=== PATIENT | female | born 1960 | race Caucasian/White ===

== ENCOUNTER → 2018-09-15 16:40 | Outpatient (CLI) | payer BC, SELFPAY ==
--- NOTE | 2018-09-15 16:45 | DI.MRI.S_ITS ---
PROCEDURE: MR KNEE LT WO CON INDICATIONS: LEFT KNEE ARTHRITIS, pain TECHNIQUE: [employer] protocol was performed. Noncontrast sagittal PD fast spin echo and T2 fast spin echo with fat saturation, sagittal 3-D FLASH with fat saturation; coronal T1 spin echo and PD fast spin echo with fat saturation, and axial PD fast spin echo with fat saturation through the knee. COMPARISON: None. FINDINGS: Image quality: Excellent. Menisci: Circumferential poorly defined macerated tear of the lateral meniscus involving anterior horn, body and posterior horn. There is also complete extrusion of the lateral meniscal body. Medial meniscal tear also noted with involvement of the body and posterior horn. There is also complete extrusion of the medial meniscal body. Cruciate ligaments: Anterior cruciate ligament not seen and likely ruptured although the age of this finding is technically indeterminate. The posterior cruciate ligament demonstrates thickened appearance although intact fibers are seen suggestive of partial rupture/chronic sprain. Medial structures: The medial collateral ligament appears thickened proximally with intrasubstance signal change in keeping with age indeterminate low-grade sprain. The posterior oblique ligament, semimembranosus tendon insertions, oblique popliteal ligament, and meniscocapsular junction appear intact. Visualized portions of the pes anserinus tendons appear normal. No abnormal bursal fluid. Lateral structures: The lateral collateral ligament, long and short heads of the biceps femoris tendon appear intact. The popliteus tendon appears normal; the popliteofibular ligament appears intact. The posterosuperior and anteroinferior popliteomeniscal fascicles appear intact. The arcuate and fabellofibular ligaments appear intact, on either side of the lateral inferior geniculate artery. Iliotibial band appears normal. Anterior structures: The quadriceps and patellar tendons appear intact. There is mild distal patellar tendinopathy. Patellar alignment is normal. No femoral trochlear dysplasia or ventral trochlear prominence. No edema in the infrapatellar fat pad. Bones and cartilage: No bone marrow contusions or fractures. Within the medial compartment there is full-thickness femoral and tibial articular cartilage loss with subchondral marrow signal changes and edema. Within the lateral compartment there is also full-thickness loss of the femoral and tibial articular cartilage Within the patellofemoral compartment, mild partial thickness loss of the femoral trochlear and patellar cartilage diffusely. Joint space: Large joint effusion is present. No definite intra-articular loose bodies. There is a moderate to large Torres's cyst which measures approximately 4 cm in the cephalocaudad dimension. IMPRESSION: Circumferential lateral meniscal tear with complete extrusion of the body. Complex medial meniscal tear involving the posterior horn and body also with complete extrusion of the body. 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 Age-indeterminate PCL sprain, with some intact visualized fibers. Proximal low-grade sprain of the MCL. Advanced joint degeneration with full-thickness articular cartilage denudation within the medial lateral compartments. Large joint effusion. Torres's cyst. Mild distal patellar tendinopathy. Dictated by: Rashaun Glez M.D. on 09/16/2018 at 8:16 Approved by: Rashaun Glez M.D. on 09/16/2018 at 9:08
== END ==
PROVIDERS: Family Provider Family Medicine; PCP Family Medicine; Visit Provider Orthopaedic Surgery
DX: S83.272A Complex tear of lateral meniscus, current injury, left knee, initial encounter (principal); S83.232A Complex tear of medial meniscus, current injury, left knee, initial encounter; S83.412A Sprain of medial collateral ligament of left knee, initial encounter; S83.522A Sprain of posterior cruciate ligament of left knee, initial encounter; M17.12 Unilateral primary osteoarthritis, left knee; M25.562 Pain in left knee; M25.462 Effusion, left knee; M71.22 Synovial cyst of popliteal space [Baker], left knee
CPT/HCPCS: 73721

== ENCOUNTER 2018-10-26 09:52 | Inpatient (IN) | payer OTHER, SELFPAY ==
[2018-10-11 10:53] VITALS: BMI 42.7
[2018-10-26] VITALS (13 sets, daily range): BP systolic 103–138; BP diastolic 43–74; PULSE 42–51; RESP 8–18; TEMP 36.3–36.7; O2SAT 96–100; BMI 42.3
--- NOTE | 2018-10-26 06:00 | DI.RAD.S_ITS ---
PROCEDURE: XR KNEE LT 1TO2V INDICATIONS: total left knee TECHNIQUE: 2 view(s) of the knee acquired. COMPARISON: None. FINDINGS: Bones: Patient is status post knee joint arthroplasty. Hardware components are in expected positions. Visualized bony structures are intact. Soft tissues: Overlying postoperative changes are noted. IMPRESSION: Post left total knee arthroplasty changes with anatomic left knee alignment. Dictated by: Chase Winston M.D. on 10/26/2018 at 15:43 Approved by: Chase Winston M.D. on 10/26/2018 at 15:43
[2018-10-26] MEDS: ACETAMINOPHEN 325 MG TABLET 975 MG PO ×2 (11:04→21:44)
[2018-10-26] MEDS: CELECOXIB 200 MG CAPSULE PO (11:04)
[2018-10-26] MEDS: LACTATED RINGERS 1,000 ML 42 ML IV ×2 (11:20→15:04)
--- NOTE | 2018-10-26 12:37 | P.OP_ITS ---
Operative Date/Time/Diagnoses Date of procedure: 10/26/18 Time of procedure: 15:12 Pre-op diagnosis: Left knee osteoarthritis Post-op diagnosis: same Procedure & Clinicians Procedure: Left total knee arthroplasty Same procedure as scheduled: Yes Indications: The patient presents today for total knee arthroplasty after failure of conservative treatment. The nature of the procedure including the risks and benefits, alternatives, postoperative course and expected outcome were discussed and all questions answered. Consent was obtained. Operative site confirmed and marked. Surgeon: Don Walker Crate Builder: Joseph Gregory Anesthesia Type: General and Local Operative Notes Findings: Severe tricompartmental osteoarthritis with valgus alignment. Closure Type: primary Specimen(s): none sent Prosthetic devices, grafts, tissues, transplants, or devices: [facility] BCS: 4 femoral component, 5 tibial component, 12 mm BCS polyethylene tray and 53 x 9 mm round patella Applied: implant(s) Estimated Blood Loss (mL): 75 Blood products transfused: none Tourniquet time (min): 24 Procedure in detail: The patient was taken to the operative suite and placed under general anesthesia. The patient was given prophylactic antibiotics prior to surgery. The patient was also given tranexamic acid, 1 g, just prior to surgery for postoperative hemostasis. The lateral knee was prepped and the joint injected with 20 mL of 1% Lidocaine with epinephrine. The knee was then prepped and draped in usual sterile fashion. The leg was exsanguinated with an Esmarch dressing and the tourniquet raised to 250 torr. A 15 cm anterior incision was made. Next a medial trivector arthrotomy was made. The extensor mechanism was marked to ensure accurate repair. Initial exposing dissection was carried out medially and laterally. The knee was then extended and the patellar thickness was measured and a cut made removing approximately 9 mm of bone with a goal of restoring normal patellar thickness. The patella was then sized and drilled. Some excess lateral bone was excised and the patellofemoral ligament released. The tourniquet was then released. The knee was then flexed and the [employer] femoral guide was placed. The anterior pins were placed and the distal rotation holes drilled. The distal cutting guide was placed and the templated distal femoral cut was made. The templating cutting block was then placed the anterior cut was too proud. Block was switched from a 5 to a 4 giving 3 more mm of anterior cut and leaving the posterior cut unchanged. The anterior, posterior and chamfer cuts made. The [employer] tibial guide was placed and the alignment checked along the axis of the proximal tibial with a aarti. The proximal tibial cut was then made with an oscillating saw. All meniscus and bony debris was then removed. Flexion extension gaps were checked. No specific balancing was required other than routine exposure and removal of osteophytes. The soft tissues were then injected with a combination of 20 mL of half percent Marcaine with epinephrine and 20 mL of Exparel. The trial components were then placed. The knee required a 12 mm spacer. This was not unexpected as both the distal femoral cut and the posterior femoral cuts were quite ample. The knee went into full extension and flexion beyond 120?. There was excellent medial- lateral balance throughout motion. Patellar tracking showed some initial subluxation or tightness about 45? of flexion. This did correct with deeper flexion. A lateral release was performed which fully corrected the alignment. The trial components were removed and size is confirmed for the final implants. The knee was then exsanguinated with an Esmarch dressing and the tourniquet reapplied for cementing. The knee was cleansed with Pulsavac irrigation and dried. The final components were cemented in with high viscosity vacuum mixed bone cement with antibiotics. The knee was held in extension and the patellar clamp until the cement had adequately cured. The knee was then irrigated with dilute Betadine solution. The extensor mechanism was closed with 5 interrupted #1 Vicryl sutures in 90 degrees of flexion. The joint was then injected with a combination of 1 g of tranexamic acid and 20 mL of quarter percent Marcaine with epinephrine. The subcutaneous tissue was closed with 2-0 Vicryl. The skin was closed with ace and surgical adhesive. An Aquacel dressing and Renzo wrap were then applied. Complications: none Condition: stable Disposition: PACU Plan for aftercare: [facility] protocol for total knee arthroplasty.
--- NOTE | 2018-10-26 12:37 | PM.PREOP ---
Pre-operative Note Interval Note History & Physical reviewed/Exam performed by Physician: Yes Changes to H&P: No
[2018-10-26] MEDS: CEFAZOLIN 2 GM/100 ML FROZ.PIGGY IV (13:30)
[2018-10-26] MEDS: LIDOCAINE 1% W/EPI INJ 20 ML INJ (13:35)
[2018-10-26] MEDS: TRANEXAMIC ACID 1,000 MG VIAL 1000 MG INJ (13:42)
--- NOTE | 2018-10-26 13:53 | SUR.OPER ---
Supine on padded OR bed. Pillow under head, arms secured on padded armboards <90 degree abduction. Safety belt across torso. Non-operative leg secured with tape over blanket over lower leg. Operative leg secured in DeMayo/Leonardo positioner. Foam padded brace at thigh of operative leg.
[2018-10-26] MEDS: BUPIVACAINE 0.5% W/ EPI (PF) 10 ML, TRANEXAMIC ACID 1,000 MG, SODIUM CHLORIDE 0.9% 20 ML INJ (14:04)
[2018-10-26] MEDS: BUPIVACAINE 0.5% W/ EPI (PF) 20 ML, BUPIVACAINE LIPOSOME 266 MG, SODIUM CHLORIDE 0.9% 8... INJ (14:05)
[2018-10-26] MEDS: POVIDONE-IODINE 15 ML, SODIUM CHLORIDE 0.9% 250 ML TOP (14:07)
[2018-10-26] MEDS: LACTATED RINGERS 1,000 ML 125 ML IV (17:07)
--- NOTE | 2018-10-26 18:33 | PC.NURSE ---
Addendum entered by Esme Bhakta R.N. 10/26/18 22:02: 2039- pt nausea with 50 clear orange emesis, zofran 4mg IVP given, effective. Original Note: Addendum entered by Esme Bhakta R.N. 10/26/18 22:01: 2019- pt up to BSC 1PA FWW to void 200mL clear yellow urine. Original Note: 1600- Pt arrived to room 214 from PACU via bed. A/O x3, mildly drowsy, able to provide information for admission. Right knee with aquacell/zev wrap, CDI, double ice bags, pillow under calf, calf SCD's on. Starting to wiggle toes, unable to ankle pump, Pt remains with numbness, denies pain. 98-100% RA, LS clear, denies SOB. Hx HTN, and A-fib, BP currently stable with bradycardia mid 40's, baseline is 50-55 since started taking Verapamil and Sotalol year and half ago, for A-fib and HTN. Left ventral aspect wrist LR @ 125. Pt is on alvarez path, unable to get OOB with PT earlier due to numbness. Pt tolerating jello, ice chips, water, and crackers, declined dinner tray. Bed alarm on.
[2018-10-26] MEDS: CEFAZOLIN VIAL 3 GM in SODIUM CHLORIDE 0.9% 100 ML 200 ML IV (21:43)
[2018-10-26] MEDS: ONDANSETRON 4 MG/2 ML INJ IV (21:44)
[2018-10-26] MEDS: ASPIRIN EC 81 MG TABLET PO (21:45)
[2018-10-26] MEDS: VERAPAMIL SR 240 MG TABLET PO (21:45)
[2018-10-26] MEDS: SOTALOL 80 MG TABLET 160 MG PO (21:45)
[2018-10-27] MEDS: LACTATED RINGERS 1,000 ML 125 ML IV (01:36)
[2018-10-27] MEDS: ONDANSETRON 4 MG/2 ML INJ IV (01:37)
[2018-10-27 04:15] VITALS: BP 105/53; PULSE 50; RESP 12; TEMP 36.3; O2SAT 100
[2018-10-27] MEDS: LEVOTHYROXINE 75 MCG TABLET PO (06:02)
[2018-10-27] MEDS: LEVOTHYROXINE 100 MCG TABLET PO (06:02)
[2018-10-27] MEDS: CEFAZOLIN VIAL 3 GM in SODIUM CHLORIDE 0.9% 100 ML 200 ML IV (06:02)
[2018-10-27 07:50] VITALS: BP 103/46; PULSE 47; RESP 14; TEMP 36.7; O2SAT 100
--- NOTE | 2018-10-27 08:19 | P.DS_ITS ---
History of Present Illness Date Patient Seen: 10/27/18 Time Patient Seen: 08:15 Chief complaint: Total Knee Arthroplasty [id number] Narrative: Hospital day 2, postop day 1 following left total knee arthroplasty by Dr. Walker. Patient remained stable postoperatively. States she did not get much rest last night. Has had some nausea and vomiting off and on but that seems to be resolved this morning. She is anticipating going home today if stable. She has not had physical therapy yet. She is scheduled to go to [facility] in [place]. Her BP and pulse were low this morning and may hold her cardiac meds. Discharge Providers Date of admission: 10/26/18 09:52 Discharge Date: 10/27/18 Primary care physician: Adeola Camacho PA-C Consults: 10/26/18 15:49 Consult to Discharge Planning Routine Comment: Consult to Physical Therapy Evaluate & Treat Comment: Physician Instructions: postop TKA protocol Consult to Respiratory Therapy Evaluate & Treat Comment: Physician Instructions: Evaluate and treat Discharge provider: Nabor Lopez PA-C Summary Discharge Diagnosis: Status post left total knee arthroplasty. Hospital Course: Patient brought to hospital on 10/26/2018 for above noted surgery. She remained stable postoperatively. Gradually improved with PT. Patient ready for discharge home on postop day 1. Status at Discharge Cognitive/behavioral status at discharge: Alert oriented no acute distress. Functional status at discharge: uses cane/walker Overall status at discharge: patient is progressing back to baseline Time Spent with Patient Less than 30 minutes Exam Vital Signs (past 8 hours): - 10/27/18 04:15 Temperature 97.4 F L Pulse Rate 50 L Respiratory Rate 12 Blood Pressure 105/53 L Pulse Oximetry 100 Oxygen Delivery Method Room Air Oxygen Flow Rate 0 Narrative Exam Narrative: Legs. Aquacel dressing to left knee is dry without drainage or inflammation. No calf pain or swelling. Pulses symmetrical. Discharge Plan Discharge Plan Patient Disposition: Home Discharge comment: Discharged home today after cleared by PT. If she is not cleared by PT she will stay tonight and possible discharge tomorrow. She is scheduled to go to [facility] at [place]. She is a [facility] patient and has postop pain medications at home. Discharge Med Rec/Prescriptions Prescriptions: New aspirin 81 mg Tablet,Delayed Release (Dr/Ec) 81 mg PO BID Qty: 60 RF: 0 Continued levothyroxine [Synthroid] 50 MCG tablet 175 mcg PO QDAY Qty: 0 RF: 0 metformin [Glucophage] 500 MG tablet 500 mg PO QAM Qty: 0 RF: 0 multivitamin Tablet 1 tab PO DAILY RF: 0 sotalol 160 mg Tablet 160 mg PO Q12H RF: 0 acetaminophen [Tylenol Extra Strength] 500 mg Tablet 1,000 mg PO Q6H PRN (Reason: Pain) RF: 0 losartan 100 mg Tablet 100 mg PO DAILY RF: 0 iron 18 mg Tablet 18 mg PO DAILY RF: 0 meloxicam 15 mg Tablet 15 mg PO DAILY RF: 0 verapamil 240 mg Tablet Extended Release 240 mg PO Q12H RF: 0 Discontinued aspirin 81 mg Tablet,Delayed Release (Dr/Ec) 81 mg PO DAILY RF: 0 Follow up/Referrals: Adeola Camacho PA-C [Primary Care Provider] - Provider Discharge Instructions Diet: Diet as Tolerated Activity: Ambulate as tolerated. Use walker as needed. Cold/Heat Therapy: Cold pack to knee as needed. Skin/Wound/Dressing Care Report to your healthcare provider any signs of infection, such as:: chills, fever, night sweats, increased pain, unusual drainage and unusual redness Dressing: Keep Aquacel dressing in place until postop visit. Discharge Data Primary Care Provider: Adeola Camacho Attending Provider: Don Walker Admit Date/Time: 10/26/18 09:52 Quality VTE Deep Vein Thrombosis/Pulmonary Embolism Present on Admission: No
[2018-10-27 08:42] LABS: Hematocrit 35.6 % (36-46); Hemoglobin 11.8 g/dL (12.0-16.0)
[2018-10-27] MEDS: OXYCODONE IR 5 MG TABLET PO (08:53)
[2018-10-27] MEDS: METFORMIN HCL 500 MG TABLET PO (08:53)
[2018-10-27] MEDS: ACETAMINOPHEN 325 MG TABLET 975 MG PO (08:54)
[2018-10-27] MEDS: ASPIRIN EC 81 MG TABLET PO (08:55)
--- NOTE | 2018-10-27 09:35 | PT.IIE ---
Current Diagnoses Unilateral primary osteoarthritis, right knee (10/26/18) Unilateral primary osteoarthritis, left knee (10/26/18) Surgery Performed Operation Date: 10/26/18 12:15 Actual Procedures p Total Knee Arthroplasty(Left) - Don Walker MD Surgical History (Last Updated 10/11/18 @ 11:30 by Luli Frankel, KYLE) History of bilateral carpal tunnel release (Acute) History of colonoscopy with polypectomy (Acute ~2012) History of esophagogastroduodenoscopy (EGD) (Acute ~2012) History of gastric surgery (Acute ~09/2017) Hx of arthroscopy of left knee (Acute ~1986) Medical History (Last Updated 10/26/18 @ 10:19 by Jenny Agosto RN) Asthma (Acute) Back pain (Acute) Bilateral shoulder pain (Acute) Cataracts, bilateral (Acute) Chronic diastolic heart failure (Acute) DVT (deep venous thrombosis) (Acute) Depression (Acute) Diabetes (Acute) Edema (Acute) GI (gastrointestinal bleed) (Acute ~2012) HTN (hypertension) (Acute) Hyperlipidemia (Acute) Hypothyroid (Acute) Kidney stones (Acute) Numbness and tingling (Acute) JABARI treated with BiPAP (Acute) Osteoarthritis (Acute) Paroxysmal A-fib (Acute) Pneumonia (Acute) RAD (reactive airway disease) (Acute) RLS (restless legs syndrome) (Acute) Schatzki's ring (Acute ~2012) Sciatica (Acute) Sinus infection (Acute) Staghorn kidney stones (Acute) Umbilical hernia (Acute) Physical Therapy Inpatient Evaluation/Re-Eval M1 PT/OT-IP Prior Functional Status Start: 10/26/18 17:10 Freq: NEEDED Status: Active Protocol: Document 10/27/18 09:35 AB (Rec: 10/27/18 12:47 AB [id number]) Medical Review Prior Functional Status Medical History Reviewed Yes Communication able to make needs known Mobility and Gait pt stated that she is modified independent with all mobilities and ambulation without AD indoors but uses a SPC for outdoor mobility Social History Household Members spouse Living Arrangements House Number of Floors (Floors) One Floor Number of Stairs To Enter/Railing? 4 steps to enter with bilateral wide rails and can only use one rail at a thime. Home Environment High Toilet Tub/Shower Home Equipment Front Wheel Walker Straight Cane Crutches Hand Held Shower Grab Bars Near Toilet Grab Bars In Shower Employment Status Retired Additional Social History Comment pt has a adjustable bed M2 PT-IP Current Condition Start: 10/26/18 17:10 Freq: NEEDED Status: Active Protocol: Document 10/27/18 09:35 AB (Rec: 10/27/18 12:47 AB [id number]) Physical Therapy Current Condition Current Condition Evaluation Date 10/27/18 Treatment Diagnosis s/p L TKA; difficulty in walking Onset Date 10/26/18 Weight Bearing Status Weight Bearing Status Weight Bear as Tolerated M3 PT-IP Subjective Start: 10/26/18 17:10 Freq: NEEDED Status: Active Protocol: Document 10/27/18 09:35 AB (Rec: 10/27/18 12:47 AB [id number]) Subjective Physical Therapy Visit Type Type Initial Evaluation Visit Start Time 09:35 Visit Stop Time 10:45 Total Visit Minutes 70 Number of UNIT MANAGER CONVENIENCE STORES Visits 0 Physical Therapy Visit Comments Patient Comments pt agreeable to do PT Patient Goals to go home Therapy Pain Assessment Pain When Pain Assessed At Rest Pain Present Pain Present Pain Reported Location Left Knee Intensity 4 Scale Used Numeric (1 - 10) Pain Management Techniques Apply Cold Re-positioning Timing of Activity with Medications M4 PT-IP Mobility and Gait Start: 10/26/18 17:10 Freq: NEEDED Status: Active Protocol: Document 10/27/18 09:35 AB (Rec: 10/27/18 12:47 AB [id number]) PT-Bed Mobility Assessment Supine to Sit Supine to Sit Standby Assistance Sit to Supine Sit to Supine Standby Assistance Scooting Scooting to Edge of Bed Standby Assistance PT-Transfer Assessment Sit to and From Stand Sit to and from Stand Standby Assistance Equipment Transfer Assistive Device Gait Belt Front Wheeled Walker Orthotic/Prosthetic Devices or Brace: No Transfers Transfer Destination Chair Transfer Technique ambulated to the chair using FWW Transfer Ability Level of Assist Standby Assistance 1 Person Assistance Gait Assessment Gait Gait Assistance Required: Standby Assistance Distance (Feet) 200 Able to Maintain Weight Bearing Status Yes During Gait Assistive Devices Assistive Device Gait Belt Front Wheeled Walker Orthotic/Prosthetic Devices or Brace: No Gait Deviations General Gait Pattern Antalgic Decreased Stride Length Decreased Feet Clearance Factors Limiting Gait Function Factors Limiting Gait Function Decreased Activity Tolerance Decreased Strength Limited Range of Motion Pain Poor Balance Poor Safety Awareness Stair Climbing Assessment Evaluation Level of Assist On Stairs Contact Guard Assistance Devices Stair Climbing Assistive Devices Straight Cane Left Railing Right Railing Technique/Endurance Stair Climbing Direction Ascend and Descend Stair Climbing Technique Step to Step Number of Steps Climbed 3 Query Text: Stair Climbing Set # Repetitions (reps) 3 Comments Stair Climbing Comments pt completed up/down steps using bilateral rail CGA. completed stairs again using L rail ascending CGA and again using L rail ascending and SPC requiring CGA. PT-Balance Assessment Sitting Balance and Reactions Static Sitting Balance Ability Good Dynamic Sitting Balance Ability Good Standing Balance and Reactions Static Standing Balance Ability Fair Dynamic Standing Balance Ability Fair Device Used FWW M5 PT-IP Objective Assessments Start: 10/26/18 17:10 Freq: NEEDED Status: Active Protocol: Document 10/27/18 09:35 AB (Rec: 10/27/18 12:47 AB [id number]) Orientation Orientation/Cognition Level of Alertness Alert Orientation Name Age Birthday Month Date Year Day of Week Place Situation Language Function Ability No Deficits Noted Safety Awareness Understands Safety Issues Memory Description Short Term Impaired Gross Range of Motion Lower Extremity ROM Assessment Bilaterally Impaired Strength Lower Extremity Strength Assessment Bilaterally Impaired Comments Strength Comments RLE: 4-/5 LLE: 3+/5 Coordination Assessment Gross Coordination Gross Coordination WNL Sensation Assessment Sensation Gross Sensation WNL Muscle Tone Muscle Tone WNL Yes M6 PT-IP Treatment Start: 10/26/18 17:10 Freq: NEEDED Status: Active Protocol: Document 10/27/18 09:35 AB (Rec: 10/27/18 12:47 AB [id number]) Physical Therapy Treatment Exercises Exercises Heel Slides Education Education Provided Precautions Weight Bearing Status Post-Op Packet Safety M7 PT-IP Assessment and Plan Start: 10/26/18 17:10 Freq: NEEDED Status: Active Protocol: Document 10/27/18 09:35 AB (Rec: 10/27/18 12:47 AB [id number]) PT Summary Assessment and Plan Potential Rehabilitation Potential Good Status of Condition at Evaluation Stable Summary Impairments Pain ROM Strength Balance Bed Mobility Transfers Gait Activity Tolerance Assessment Summary pt requiring SBA to CGA with mobility. pt plans to go home with spouse to assist her. pt may go home when medically stable. Goals Bed Mobility Goal Independent Transfer Goal Independent Front Wheeled Walker Gait Goal Independent Front Wheel Walker Gait Distance 250 Other Goals up/down 4 steps using L rail/ SPC SBA Days to Meet Goals 2 Frequency of Treatment Frequency Of Treatment Twice a Day Treatment Plan Physical Therapy Treatment Plan Bed Mobility Training Transfer Training Gait Training Therapeutic Exercise Balance Retraining Post Op Education Discharge Planning Hot or Cold Pack Neuromuscular Re-ed Coordination Retraining Manual Therapy Recommendations To Nursing Amount of Assist Needed 1 Person Assist Discharge Recommendations PT Discharge Recommendations Home with Assistance Outpatient PT
--- NOTE | 2018-10-27 15:18 | CM.DANOTE ---
Addendum entered by Monique Morejon LPN 10/27/18 15:27: Went to room now to check in as planned. Room is cleaned and pt has already left for home as per her plan. Original Note: Discharge Planning/Care Management DCP: assessment: case received, EMR reviewed and d/c order and summary from Bertrand Lopez is noted. Review of the d/c summary shows that pt will d/c today only if cleared by PT, otherwise will stay on until tomorrow. Pt is a 58 year old female who admitted for a planned TKA Surgeon: Dr. Walker Payer: Bishnu ELENA Pt did work with PT Yoana this morning and notes from this afternoon are not yet in. She plans for home with her spouse's support and has OUTPT PT all set up at [facility] in [place]. Will check in with her and follow prn for any d/c needs that may arise. Advanced directive, confirm from FAMILY Start: 10/26/18 16:58 Freq: Q24H Status: Discharge Protocol: Document 10/26/18 16:58 MLA (Rec: 10/26/18 17:00 MLA [id number]) Advance Directive, confirm on record Time 16:30 Person contacted Mariana Raymond received No CM Discharge Assessment Start: 10/27/18 15:16 Freq: Status: Discharge Protocol: Document 10/27/18 15:17 ITV (Rec: 10/27/18 15:17 ITV [id number]) Discharge Planning Assessment Advance Directives? No: Information mailed to patient Advance Directives on File No History Provided By Patient Medical Record Prior Living Arrangements House Household Members spouse Review Status In Process Next Review Type Continued Stay Review Pre-Anesthesia Assessment Start: 10/11/18 10:53 Freq: Status: Complete Protocol: Document 10/11/18 10:53 CAB (Rec: 10/11/18 11:46 CAB [id number]) Pre-Anesthesia Assessment PAC Comment Pt has lost 165lbs since 08/15 . Gastric sleeve 10/17. Last cardiac note 07/08/17, last pulmonary note 10/06/17 scanned to record Patient Information Reviewed Via Phone Assessment Assessment Completed With Patient Diagnostic Results BMP/CMP CBC EKG Primary Care Provider Adeola Camacho Seen Specialist in Last 12 Months Yes Specialist Seen Orthopedist Ticket Agent Primary Language Cypriot Collection Team Lead Required No Height 167.64 cm Weight 120.202 kg Body Mass Index (BMI) 42.7 Hearing Ability Normal Visual Assist Glasses Dentition Type Teeth, Natural Present Barriers to Learning None Other Aids Yes: BiPAP Hx Anesthesia Reactions No Hx Family Anesthesia Reaction No Hx Malignant Hyperthermia No Hx Blood Transfusions Yes: r/t GI bleed in 2013 Hx Blood Transfusion Reaction No Anesthesia Review Requested No Child'S Nurse No alcohol intake former Smoking Status Never smoker Substance Use Type does not use Pain Present Pain Reported Musculoskeletal Symptoms Abnormal Gait Back Pain Difficulty Walking Joint Pain Limited Range of Motion Muscle Cramps Muscle Weakness Numbness Radiating Pain into Limb History of Falling (Recent or History of Yes ) Patient is completely paralyzed or No completely immobile Prosthesis or Orthotic Device Cane Mental Status Oriented to own ability Is patient on oxygen? No Does patient have GIFFORD/SOB Yes: Resolved with gastric sleeve surgery Hx Sleep Apnea Yes CPAP/BIPAP use prescribed and used routinely Will Bring CPAP/BIPAP DOS Yes Currently Taking a Beta Amarilys Yes: Sotalol Can You Climb a Flight of Stairs Without Yes SOB Hx Chest Pain No Hx SOB Yes: Resolved with gastric sleeve surgery Hx Syncope or Dizziness No Anti-Coagulant Therapy Yes: Aspirin 81mg daily-will check w/cardiology if needed to stop Has a Science And Operations Officer Yes: Dr. Evans Cardiac Testing No Hx Pacemaker/ICD No Pacemaker Rep Required? No Cardiac Clearance Received Not Applicable Comment PFT, last pulmonary note scanned to record, mild RAD Diet Type At Home Regular Low Carb dysphagia No Urinary Catheter Present No Hx Urinary Self Catheterization No Diabetes Yes: Pt checks BS a few times a week HgbA1C 5.3 Date 10/04/18 Patient No Lactating No Hx Drug Resistant Organism No Presence of External or Internal Medical Yes: BiPAP Devices Have you traveled outside the [facility] States in the last 30 days? Marital Status Lives With spouse Prior Living Arrangements House Number of Floors (Floors) One Floor Number of Stairs To Enter/Railing? 4 stairs, railing present Support System Spouse Does the Patient Have Assistance After Yes Surgery Patient Discharge Plan Description Return Home Comment Pt not advised on length of stay per surgeon's office Feels Safe in Current Environment Yes Been Physically Hurt or Threatened By a No Person in Current Environment Do you have thoughts of harming yourself None or others? Are you currently considering suicide? No Do you have a plan to hurt yourself or No Plan others? Do You Have Any Spiritual Beliefs That No May Affect Your HC Choices? Do You Have Any Cultural Practices That No May Affect Your HC Choices? Spiritual Referral None Comment Sabianism Who Can We Speak to About Patient's Care Family, friends Identifying Code for Release of Patient Declines to issue Information Health Care Proxy/Next of Kin Donnie () Health Care Proxy Emergency Contact Name Donnie () Emergency Contact Advance Directives? No: Information mailed to patient Advance Directives on File No Requested Patient Bring Advanced Yes Directives DOS Power of Confectionery Cooker No PAC Instructions Bring CPAP/BIPAP Do not shave/clip surgical site Durable medical equipment Medications to take/avoid Nasal antibiotic No ETOH/petroleum product on skin DOS NPO Post-op transportation Pre-surgical wash Sturdy shoes/comfortable clothes Do not bring valuables and remove jewelry
== END 2018-10-27 13:00 | disposition home or self-care (01) | DRG 470 ==
PROVIDERS: Admitting Provider Orthopaedic Surgery; PCP Physician Assistant Medical; Visit Provider Orthopaedic Surgery
PROC: 0SRD0JZ Replacement of Left Knee Joint with Synthetic Substitute, Open Approach (ICD-10-PCS; CPT 27447; principal; 2018-10-26 12:15)
DX: M17.12 Unilateral primary osteoarthritis, left knee (principal); Z68.41 Body mass index [BMI] 40.0-44.9, adult; E11.9 Type 2 diabetes mellitus without complications; I48.91 Unspecified atrial fibrillation; I10 Essential (primary) hypertension; F32.9 Major depressive disorder, single episode, unspecified; E66.9 Obesity, unspecified; Z79.84 Long term (current) use of oral hypoglycemic drugs; R11.2 Nausea with vomiting, unspecified
CPT/HCPCS: 36415; 73560; 82962; 85014; 85018; 97116; 97161; 97530; C1776; C9290; J0690; J2250; J2274; J2405; J2704; J3010

== ENCOUNTER → 2019-01-20 14:12 | Outpatient (CLI) | payer OTHER, SELFPAY ==
[2018-10-26 16:00] VITALS: BMI 42.3
--- NOTE | 2019-01-20 | DI.MRI.S_ITS ---
PROCEDURE: MR KNEE RT WO CON INDICATIONS: UNILATERAL PRIMARY OSTEOARTHRITIS TECHNIQUE: Noncontrast sagittal PD fast spin echo and T2 fast spin echo with fat saturation, sagittal 3-D FLASH with fat saturation; coronal T1 spin echo and PD fast spin echo with fat saturation, and axial PD fast spin echo with fat saturation through the knee. COMPARISON: [facility] [place], CR, XR KNEE ARTHRITIC SERIES LT, 12/05/2018, 12:59. FINDINGS: Image quality: Excellent. Menisci: There is severe degenerative tearing of the lateral meniscus. There is severe degenerative tearing of the posterior horn of the medial meniscus The meniscal root ligaments appear intact. Cruciate ligaments: The anterior cruciate ligament is chronically torn. The posterior cruciate ligament appears intact. Medial structures: The medial collateral ligament appears intact. The posterior oblique ligament, semimembranosus tendon insertions, oblique popliteal ligament, and meniscocapsular junction appear intact. Visualized portions of the pes anserinus tendons appear normal. No abnormal bursal fluid. Lateral structures: The lateral collateral ligament, long and short heads of the biceps femoris tendon appear intact. The popliteus tendon appears normal; the popliteofibular ligament appears intact. The posterosuperior and anteroinferior popliteomeniscal fascicles appear intact. The arcuate and fabellofibular ligaments appear intact, on either side of the lateral inferior geniculate artery. Iliotibial band appears normal. Anterior structures: The quadriceps and patellar tendons appear intact. Patellar alignment is normal. No femoral trochlear dysplasia or ventral trochlear prominence. No edema in the infrapatellar fat pad. Bones and cartilage: No bone marrow contusions or fractures. There is severe tricompartmental osteoarthritic degenerative change with full-thickness loss of articular cartilage in marginal osteophytosis. There is a large, 3.1 x 2.2 x 3.7 cm osteophyte involving the posterior margin of the lateral tibial plateau. Joint space: There is a large joint effusion. No Torres's cyst. Normal appearing synovial plicae are incidentally noted. IMPRESSION: 1. Chronic interstitial ligament tear. 2. Severe chronic degenerative tearing of the lateral meniscus and posterior horn of the medial meniscus. 3. Severe tricompartmental osteoarthritis. 4. Large joint effusion. Dictated by: Vivienne Baumann MD, PhD on 01/20/2019 at 17:00 Approved by: Vivienne Baumann MD, PhD on 01/23/2019 at 20:29
== END ==
PROVIDERS: PCP Physician Assistant Medical; Visit Provider Orthopaedic Surgery
DX: M17.11 Unilateral primary osteoarthritis, right knee (principal); M23.200 Derangement of unspecified lateral meniscus due to old tear or injury, right knee; M23.221 Derangement of posterior horn of medial meniscus due to old tear or injury, right knee; M23.8X1 Other internal derangements of right knee; M25.461 Effusion, right knee
CPT/HCPCS: 73722

== ENCOUNTER → 2019-02-01 15:50 | Outpatient (CLI) | payer OTHER, SELFPAY ==
[2018-10-26 16:00] VITALS: BMI 42.3
--- NOTE | 2019-02-01 | DI.MRI.S_ITS ---
PROCEDURE: MR SHOULDER LT WO CON INDICATIONS: Left shoulder pain with decrease range of motion TECHNIQUE: Noncontrast oblique coronal T2 fast spin echo with fat saturation, oblique sagittal T1 spin echo and T2 fast spin echo with fat saturation, axial T1 spin echo and T2 fast spin echo with fat saturation through the shoulder. COMPARISON: [facility] [place], CR, XR SHOULDER 2+ VIEWS LEFT, 01/09/2019, 16:15. FINDINGS: Image quality: Excellent. Rotator cuff: Massive full-thickness tear of the supraspinatus infraspinatus and subscapularis tendons, circumferentially this measures 5.7 cm overall on sagittal image 15 series 10. There is severe diffuse atrophy of the respective supraspinatus infraspinatus and subscapularis muscles. The teres minor appears intact. Bones and bursae: No bone marrow contusions or fractures. Severe hypertrophic acromioclavicular joint degeneration. There is also severe glenohumeral degenerative joint disease. The acromion demonstrates conventional anatomy, without an os acromiale. Large joint effusion is present. Capsule and soft tissues: Chronic probably age-appropriate circumferential degenerative fraying of the labrum. The intra-articular segment of the long head of the biceps tendon is not well-visualized probably indicating rupture although poorly visible medial subluxation in the differential. Partial obliteration of the subcoracoid fat. The coracohumeral ligament is normal in thickness. IMPRESSION: Massive full-thickness tear involving the subscapularis, supraspinatus and infraspinatus tendons, with associated severe atrophy of the respective muscles. Severe degenerative joint disease. Large joint effusion. Circumferential probably degenerative/chronic fraying of the labrum. Rupture of the intra-articular segment of the long head biceps tendon Dictated by: Rashaun Glez M.D. on 02/02/2019 at 8:40 Approved by: Rashaun Glez M.D. on 02/02/2019 at 8:50
== END ==
PROVIDERS: PCP Physician Assistant Medical; Visit Provider Orthopaedic Surgery
DX: M25.512 Pain in left shoulder (principal); M75.122 Complete rotator cuff tear or rupture of left shoulder, not specified as traumatic; S46.112A Strain of muscle, fascia and tendon of long head of biceps, left arm, initial encounter; M19.012 Primary osteoarthritis, left shoulder; M25.412 Effusion, left shoulder
CPT/HCPCS: 73221

== ENCOUNTER 2019-03-15 07:21 | Inpatient (IN) | payer OTHER, SELFPAY ==
[2018-10-26 16:00] VITALS: BMI 42.3
[2019-03-07 10:48] VITALS: BMI 42.7
[2019-03-15] VITALS (25 sets, daily range): BP systolic 94–150; BP diastolic 35–80; PULSE 35–56; RESP 9–16; TEMP 35.5–36.6; O2SAT 94–100; BMI 42.7
--- NOTE | 2019-03-15 06:49 | DI.RAD.S_ITS ---
PROCEDURE: XR KNEE RT 1TO2V INDICATIONS: post op right TKA TECHNIQUE: 2 view(s) of the knee acquired. COMPARISON: [facility], CR, XR KNEE LT 1TO2V, 10/26/2018, 15:16. FINDINGS: Bones: Patient is status post knee joint arthroplasty. Hardware components are in expected positions. Visualized bony structures are intact. Soft tissues: Overlying postoperative changes are noted. IMPRESSION: Post right total knee arthroplasty changes with anatomic right knee alignment. Dictated by: Chase Winston M.D. on 03/15/2019 at 12:28 Approved by: Chase Winston M.D. on 03/15/2019 at 12:28
[2019-03-15] MEDS: ACETAMINOPHEN 325 MG TABLET 975 MG PO ×3 (08:09→21:38)
[2019-03-15] MEDS: CELECOXIB 200 MG CAPSULE PO (08:09)
[2019-03-15] MEDS: PREGABALIN 75 MG CAPSULE PO (08:09)
[2019-03-15] MEDS: ONDANSETRON 4 MG/2 ML INJ IV ×2 (08:21→11:11)
[2019-03-15] MEDS: APREPITANT 40 MG CAPSULE PO (08:35)
[2019-03-15] MEDS: CEFAZOLIN 2 GM/100 ML FROZ.PIGGY IV (08:42)
--- NOTE | 2019-03-15 08:43 | PM.PREOP ---
Pre-operative Note Interval Note History & Physical reviewed/Exam performed by Physician: Yes Changes to H&P: No
[2019-03-15] MEDS: LIDOCAINE 1% W/EPI INJ 20 ML INJ (08:45)
--- NOTE | 2019-03-15 08:45 | P.OP_ITS ---
Operative Date/Time/Diagnoses Date of procedure: 03/15/19 Time of procedure: 10:47 Pre-op diagnosis: Right knee osteoarthritis Post-op diagnosis: same Procedure & Clinicians Procedure: Right total knee arthroplasty Same procedure as scheduled: Yes Indications: The patient presents today for total knee arthroplasty after failure of conservative treatment. The nature of the procedure including the risks and benefits, alternatives, postoperative course and expected outcome were discussed and all questions answered. Consent was obtained. Operative site confirmed and marked. Surgeon: Don Walker Civil Engineering Design Draftsperson: Joseph Gregory Anesthesia Type: General, Spinal and Local Operative Notes Findings: Severe osteoarthritis with valgus alignment Closure Type: primary Specimen(s): none sent Prosthetic devices, grafts, tissues, transplants, or devices: Teresa and [id number] Rosita BCS: 4 femoral component, 5 tibial component, 12 mm BCS polyethylene tray and 35 x 9 mm round patella Applied: implant(s) Estimated Blood Loss (mL): 25 Blood products transfused: none Tourniquet time (min): 62 Procedure in detail: The patient was taken to the operative suite and placed under general and spinal anesthesia. The patient was given prophylactic antibiotics prior to surgery. The patient was also given tranexamic acid, 1 g, just prior to surgery for postoperative hemostasis. The lateral knee was prepped and the joint injected with 20 mL of 1% Lidocaine with epinephrine. The knee was then prepped and draped in usual sterile fashion. The leg was exsanguinated with an Esmarch dressing and the tourniquet raised to 275 torr. A 15 cm anterior incision was made. Next a medial trivector arthrotomy was made. The extensor mechanism was marked to ensure accurate repair. Initial exposing dissection was carried out medially and laterally. The knee was then extended and the patellar thickness was measured and a cut made removing approximately 9 mm of bone with a goal of restoring normal patellar thickness. The patella was then sized and drilled. Some excess lateral bone was excised and the patellofemoral ligament released. The tourniquet was then released. The knee was then flexed and the [employer] femoral guide was placed. The anterior pins were placed and the distal rotation holes drilled. The distal cutting guide was placed and the templated distal femoral cut was made. The templating cutting block was then placed and the anterior, posterior and chamfer cuts made. The [employer] tibial guide was placed and the alignment checked along the axis of the proximal tibial with a aarti. The proximal tibial cut was then made with an oscillating saw. All meniscus and bony debris was then removed. Flexion extension gaps were checked. The knee was slightly tight laterally. This was corrected by releasing the lateral capsule with a pie crust technique using a 15 blade. The soft tissues were then injected with a combination of 20 mL of half percent Marcaine with epinephrine and 20 mL of Exparel. The trial components were then placed. The knee went into full extension and flexion beyond 120?. There was excellent medial- lateral balance throughout motion. Patellar tracking was excellent. The trial components were removed and size is confirmed for the final implants. The knee was then exsanguinated with an Esmarch dressing and the tourniquet reapplied for cementing. The knee was cleansed with Pulsavac irrigation and dried. The final components were cemented in with high viscosity vacuum mixed b one cement with antibiotics. The knee was held in extension and the patellar clamp until the cement had adequately cured. The knee was then irrigated with dilute Betadine solution. The extensor mechanism was closed with 5 interrupted #1 Vicryl sutures in 90 degrees of flexion. The joint was then injected with a combination of 1 g of tranexamic acid and 20 mL of quarter percent Marcaine with epinephrine. The subcutaneous tissue was closed with 2-0 Vicryl. The skin was closed with ace and surgical adhesive. An Aquacel dressing and Renzo wrap were then applied. Complications: none Condition: stable Disposition: PACU Plan for aftercare: [facility] protocol for total knee arthroplasty.
[2019-03-15] MEDS: TRANEXAMIC ACID 1,000 MG VIAL 1000 MG INJ (09:30)
[2019-03-15] MEDS: BUPIVACAINE 0.25% W/ EPI 30 ML VIAL 60 ML INJ (09:46)
[2019-03-15] MEDS: BUPIVACAINE LIPOSOME 266 MG/20 ML VIAL INJ (09:52)
[2019-03-15] MEDS: BUPIVACAINE 0.25% W/ EPI (PF) 20 ML, TRANEXAMIC ACID 1,000 MG, SODIUM CHLORIDE 0.9% 10 ML INJ (09:55)
[2019-03-15] MEDS: LACTATED RINGERS 1,000 ML 42 ML IV (11:15)
--- NOTE | 2019-03-15 11:32 | SUR.PHASEI ---
stable post op knee, report attempted, rn not available, to callback.
--- NOTE | 2019-03-15 11:44 | SUR.PHASEI ---
rn still not available as well as coordinator ashkan, message left to call me back. hr 36-40's, rn returned call, dr green to bedside, pt still asymptomatic with low hr. telemetry ordered and pt placed on it prior to transpor.t
--- NOTE | 2019-03-15 12:15 | SUR.PHASEI ---
Pt transported via bed to room 224, left with Dasha WRIGHT and Ramiro RN and left in stable condition.
--- NOTE | 2019-03-15 12:47 | PC.NURSE ---
Received report from Ernie in PACU that patient's heart rate has been bessy in 30-40's post op and that anesthesia was aware and had ordered patient to continue telemetry. Patient arrived to floor, BP stable. Continuing to monitor closely.
--- NOTE | 2019-03-15 13:17 | PC.NURSE ---
Per PACU and surgery Kel Stewart and Colt are all in a surgery right now. Voicemail left with Tammie Cazares'Brien. Patient's blood pressure remains stable at this time, but patient reports she does feel sleepy. RT in at this time to set up her home CPAP.
--- NOTE | 2019-03-15 13:28 | PC.NURSE ---
Dr. Garcia concert singer anesthesia notified of patient's continued low heart rate post operatively. States he will come to see her shortly.
[2019-03-15] MEDS: GLYCOPYRROLATE 1 MG/5 ML MDV 0.2 MG IV ×2 (13:50→18:12)
[2019-03-15] MEDS: LACTATED RINGERS 1,000 ML 125 ML IV ×2 (14:39→23:00)
--- NOTE | 2019-03-15 14:50 | PC.NURSE ---
Dr Swain evaluated patient at bedside, glycopyrrolate .2mg in 1 cc given IV by Dr. swain. Patient tolerated well. Patient continues with telemetry monitoring. Currently sinus bessy with HR 43. Call light within reach.
--- NOTE | 2019-03-15 16:15 | PT.IIE ---
Current Diagnoses Unilateral primary osteoarthritis, right knee (03/15/19) Surgery Performed Operation Date: 03/15/19 08:45 Actual Procedures p Total Knee Arthroplasty(Right) - Don Walker MD Surgical History (Last Updated 03/07/19 @ 11:11 by Luli Frankel, RN) History of arthroplasty of left knee (Acute 10/26/18) History of bilateral carpal tunnel release (Acute) History of colonoscopy with polypectomy (Acute ~2012) History of esophagogastroduodenoscopy (EGD) (Acute ~2012) History of gastric surgery (Acute ~11/2018) Hx of arthroscopy of left knee (Acute ~1986) Medical History (Last Updated 03/07/19 @ 10:57 by Luli Frankel RN) Afib (Acute) Asthma (Acute) Back pain (Acute) Bilateral shoulder pain (Acute) Cataracts, bilateral (Acute) Chronic diastolic heart failure (Acute) DVT (deep venous thrombosis) (Acute) Depression (Acute) Diabetes (Acute) Edema (Acute) GI (gastrointestinal bleed) (Acute ~2012) HTN (hypertension) (Acute) Hyperlipidemia (Acute) Hypothyroid (Acute) Kidney stones (Acute) Numbness and tingling (Acute) JABARI treated with BiPAP (Acute) Osteoarthritis (Acute) Paroxysmal A-fib (Acute) Pneumonia (Acute) RAD (reactive airway disease) (Acute) RLS (restless legs syndrome) (Acute) Schatzki's ring (Acute ~2012) Sciatica (Acute) Sinus infection (Acute) Staghorn kidney stones (Acute) Umbilical hernia (Acute) Physical Therapy Inpatient Evaluation/Re-Eval M1 PT/OT-IP Prior Functional Status Start: 03/15/19 17:03 Freq: NEEDED Status: Active Protocol: Document 03/15/19 16:15 AB (Rec: 03/15/19 17:16 AB [id number]) Medical Review Prior Functional Status Medical History Reviewed Yes Communication able to make needs known Mobility and Gait pt stated that she is modified independent with all mobilities and ambulation without AD. pt just had LTKA last september 2018. Social History Household Members spouse Living Arrangements House Number of Floors (Floors) One Floor Number of Stairs To Enter/Railing? 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 PT-IP Current Condition Start: 03/15/19 17:03 Freq: NEEDED Status: Active Protocol: Document 03/15/19 16:15 AB (Rec: 03/15/19 17:16 AB [id number]) Physical Therapy Current Condition Current Condition Evaluation Date 03/15/19 Treatment Diagnosis s/p R TKA; difficulty in walking Onset Date 03/15/19 Weight Bearing Status Weight Bearing Status Weight Bear as Tolerated M3 PT-IP Subjective Start: 03/15/19 17:03 Freq: NEEDED Status: Active Protocol: Document 03/15/19 16:15 AB (Rec: 03/15/19 17:16 AB [id number]) Subjective Physical Therapy Visit Type Type Initial Evaluation Visit Start Time 16:15 Visit Stop Time 16:55 Total Visit Minutes 40 Number of ASSURANCE SERVICES MANAGER HEALTH CARE Visits 0 Physical Therapy Visit Comments Patient Comments pt agreeable to do PT Therapy Pain Assessment Pain When Pain Assessed At Rest Pain Present Pain Present Pain Reported Location Right Knee Scale Used pain scale not stated; c/o slight pain Pain Management Techniques Apply Cold Re-positioning Timing of Activity with Medications M4 PT-IP Mobility and Gait Start: 03/15/19 17:03 Freq: NEEDED Status: Active Protocol: Document 03/15/19 16:15 AB (Rec: 03/15/19 17:16 AB [id number]) PT-Bed Mobility Assessment Supine to Sit Supine to Sit Standby Assistance Sit to Supine Sit to Supine Standby Assistance Scooting Scooting to Edge of Bed Standby Assistance PT-Transfer Assessment Sit to and From Stand Sit to and from Stand Minimal Assistance Moderate Assistance 1 Person Assistance Use of Upper Extremities Equipment Transfer Assistive Device Gait Belt Front Wheeled Walker Orthotic/Prosthetic Devices or Brace: No Comments Mobility Comments pt required min A for sit to stand from EOB but required mod A from chair. BP in supine: 116/52 c/o slight lightheadedness with initial sitting. BP checked: 131/66. pt ambulated in room without any c/o dizziness/ lightheadedness. BP at end of tx session: 136/68 Gait Assessment Gait Gait Assistance Required: Minimum Assistance Distance (Feet) 20 Able to Maintain Weight Bearing Status Yes During Gait Assistive Devices Assistive Device Gait Belt Front Wheeled Walker Orthotic/Prosthetic Devices or Brace: No Gait Deviations General Gait Pattern Antalgic Decreased Stride Length Decreased Feet Clearance Factors Limiting Gait Function Factors Limiting Gait Function Decreased Activity Tolerance Decreased Strength Limited Range of Motion Pain Poor Balance Comments Gait Comments pt ambulated in room 20 ft x 2 using FWW min A and cues. PT-Balance Assessment Sitting Balance and Reactions Static Sitting Balance Ability Good Dynamic Sitting Balance Ability Good Standing Balance and Reactions Static Standing Balance Ability Fair Dynamic Standing Balance Ability Fair Device Used FWW M5 PT-IP Objective Assessments Start: 03/15/19 17:03 Freq: NEEDED Status: Active Protocol: Document 03/15/19 16:15 AB (Rec: 03/15/19 17:16 AB [id number]) Orientation Orientation/Cognition Level of Alertness Alert Orientation Name Age Birthday Month Date Year Day of Week Place Situation Language Function Ability No Deficits Noted Safety Awareness Understands Safety Issues Memory Description No Deficits Noted Gross Range of Motion Lower Extremity ROM Impairments R knee flexion: ~ 70 deg Strength Lower Extremity Strength Assessment Bilaterally Impaired Hip 3+/5 Knee 4-/5 Coordination Assessment Gross Coordination Gross Coordination WNL Sensation Assessment Sensation Gross Sensation WNL Muscle Tone Muscle Tone WNL Yes M6 PT-IP Treatment Start: 03/15/19 17:03 Freq: NEEDED Status: Active Protocol: Document 03/15/19 16:15 AB (Rec: 03/15/19 17:16 AB [id number]) Physical Therapy Treatment Education Education Provided Precautions Weight Bearing Status Post-Op Packet Safety M7 PT-IP Assessment and Plan Start: 03/15/19 17:03 Freq: NEEDED Status: Active Protocol: Document 03/15/19 16:15 AB (Rec: 03/15/19 17:16 AB [id number]) PT Summary Assessment and Plan Potential Rehabilitation Potential Good Status of Condition at Evaluation Stable Summary Impairments Pain ROM Strength Balance Bed Mobility Transfers Gait Activity Tolerance Assessment Summary pt requiring min to mod A with mobility and will likely improve during hospital stay. pt will have her spouse to assist her at home. will conduct caregiver training if appropriate and will complete stair climbing training prior to d/c home. Goals Bed Mobility Goal Independent Transfer Goal Independent Front Wheeled Walker Gait Goal Independent Front Wheel Walker Gait Distance 150 Other Goals up/down 4 steps L rail + SPC CGA Days to Meet Goals 5 Frequency of Treatment Frequency Of Treatment Twice a Day Treatment Plan Physical Therapy Treatment Plan Bed Mobility Training Transfer Training Gait Training Therapeutic Exercise Balance Retraining Post Op Education Discharge Planning Hot or Cold Pack Neuromuscular Re-ed Coordination Retraining Manual Therapy Recommendations To Nursing Amount of Assist Needed 1 Person Assist Discharge Recommendations PT Discharge Recommendations Home with Assistance Outpatient PT
[2019-03-15] MEDS: CEFAZOLIN VIAL 3 GM in SODIUM CHLORIDE 0.9% 100 ML 200 ML IV (17:15)
[2019-03-15 19:01] LABS: Add Manual Diff / Slide Review NO; Basophils Absolute Auto 100 /uL (0-100); Basophils Percent Auto 0.8 % (0-2); Eosinophils Absolute Auto 200 /uL (0-450); Eosinophils Percent Auto 2.2 % (2-4); Hematocrit 37.2 % (36-46); Hemoglobin 12.2 g/dL (12.0-16.0); Lymphocytes Absolute Auto 1900 /uL (1100-4500); Lymphocytes Percent Auto 19.8 % (25-40); Mean Corpuscular HGB Conc 32.9 % (30-36); Mean Corpuscular Hemoglobin 29.4 PG (26-34); Mean Corpuscular Volume 89.4 fL (80-100); Monocytes Absolute Auto 1000 /uL (0-900); Monocytes Percent Auto 10.3 % (3-14); Neutrophils Absolute Auto 6500 /uL (1500-7000); Neutrophils Percent Auto 66.9 % (50-75); Platelet Count 286 X10^3/uL (150-400); Red Blood Cell Count 4.16 X10^6/uL (4.0-5.2); Red Cell Distribution Width 13.6 % (11.6-14.8); White Blood Cell Count 9.7 X10^3/uL (4.5-11.0)
[2019-03-15 19:16] LABS: Creatine Kinase 135 U/L (30-135)
[2019-03-15 19:18] LABS: Alanine Aminotransferase 24 IU/L (9-52); Albumin 4.1 g/dL (3.5-5.0); Albumin Globulin Ratio 1.5 (1.0-2.8); Alkaline Phosphatase 68 U/L (38-126); Aspartate Aminotransferase 32 IU/L (14-36); BUN Creatinine Ratio 34.3 (6-22); Bilirubin Total 0.9 mg/dL (0.2-1.3); Blood Urea Nitrogen 24 mg/dL (7-17); Calcium 9.6 mg/dL (8.4-10.2); Carbon Dioxide 30 mmol/L (22-32); Chloride 103 mmol/L (98-107); Estimated Glomerular Filt Rate > 60.0 mL/min (>60); Globulin 2.8 g/dL (1.7-4.1); Glucose 79 mg/dL (80-110); HEMOLYSIS < 15 (0-50); Sodium 141 mmol/L (137-145); Total Protein 6.9 g/dL (6.3-8.2)
[2019-03-15 19:29] LABS: Troponin I < 0.012 ng/mL (0.01-0.034)
[2019-03-15 19:31] LABS: CKMB % Relative Index 1.2 % (1.5-5.0); Creatine Kinase MB 1.62 ng/mL (<2.37)
--- NOTE | 2019-03-15 20:20 | PC.NURSE ---
VELIA Shift pt AO and receptive to care. pt at bedside at start of shift. LR infusing at 125/hr. pt on 2L O2, NC and sating 100%. Decreased 02 to 1L and after 30 minutes at 100% removed NC and pt 100% on RA. pt CPAP at bedside for sleeping. CBG at 1630 87. GABBY blinking yellow with PT at start of shift and needed to be maintenanced (tightened caps), green light is now on and suction is apparent. Renzo wrap and ice packs to knee. PT worked with pt at 1530 and pt will be 1PA. Tele sinus bessy in mid-40's. BP 134/74. pt heart rate started dipping into mid-high 30's. pt was asymptomatic (although reported mild light-headedness with PT earlier in shift). After a while of heart rate in 30's, a call to Dr. Garcia was placed and a verbal discussion with Dr. Peralta was started. Dr. Garcia ordered another 0.2mg glycopyrolate IV and it was administered. Dr. Peralta ordered stat EKG, blood work, and Dee catheter. pt was scared, but receptive. We then moved rooms to 226 to keep eye-on medation status. Dee insertion tolerated well and over 400ml drained. Dr. Peralta gave oncoming hospitalist (Joe) report regarding pt and pharmacy has placed extra glycopyrolate in night pharmacy in case additional administrations are ordered. pt tolerated dinner meal. SCD's on.
[2019-03-15] MEDS: METFORMIN XR 500 MG TABLET PO (21:39)
[2019-03-15] MEDS: ASPIRIN EC 81 MG TABLET PO (21:39)
--- NOTE | 2019-03-15 22:12 | P.CONS_ITS ---
History of Present Illness Date Patient Seen: 03/15/19 Time Patient Seen: 22:04 Chief complaint: Right [id number] Reason for consult: Bradycardia Narrative: 58-year-old female with history of persistent atrial fibrillation underwent elective orthopedic surgery today. Postoperatively she has had some prolonged episodes of bradycardia with some lightheadedness. Heart rate is routinely dipped down into the 30s. She did receive 2 doses of glycopyrolate per anesthesia that did help bring the heart rate back up into the 40s and 50s. She is also on sotalol and verapamil for her AFib. She was put on the sotalol almost 2 years ago to convert her back to sinus rhythm in evidently has been in sinus rhythm while taking that medication. She had been on verapamil prior to that currently she feels well no specific symptoms of thought lightheadedness. Her current heart rate is about 45. She is in sinus rhythm [facility] Medical History (Updated 03/07/19 @ 10:57 by Luli Frankel RN) Afib (Acute) Asthma (Acute) Back pain (Acute) Bilateral shoulder pain (Acute) Cataracts, bilateral (Acute) Chronic diastolic heart failure (Acute) DVT (deep venous thrombosis) (Acute) Depression (Acute) Diabetes (Acute) Edema (Acute) GI (gastrointestinal bleed) (Acute ~2012) HTN (hypertension) (Acute) Hyperlipidemia (Acute) Hypothyroid (Acute) Kidney stones (Acute) Numbness and tingling (Acute) JABARI treated with BiPAP (Acute) Osteoarthritis (Acute) Paroxysmal A-fib (Acute) Pneumonia (Acute) RAD (reactive airway disease) (Acute) RLS (restless legs syndrome) (Acute) Schatzki's ring (Acute ~2012) Sciatica (Acute) Sinus infection (Acute) Staghorn kidney stones (Acute) Umbilical hernia (Acute) Surgical History (Updated 03/07/19 @ 11:11 by Luli Frankel RN) History of arthroplasty of left knee (Acute 10/26/18) History of bilateral carpal tunnel release (Acute) History of colonoscopy with polypectomy (Acute ~2012) History of esophagogastroduodenoscopy (EGD) (Acute ~2012) History of gastric surgery (Acute ~11/2018) Hx of arthroscopy of left knee (Acute ~1986) Social History household members: spouse Smoking Status: Never smoker alcohol intake: former Social History household members: spouse Smoking Status: Never smoker alcohol intake: former Meds Home Medications Medication Instructions Recorded Confirmed Type acetaminophen [Tylenol Extra 1,000 mg PO Q6H PRN 10/11/18 03/15/19 History Strength] iron 18 mg PO DAILY 10/11/18 03/15/19 History losartan 100 mg PO DAILY 10/11/18 03/15/19 History meloxicam 15 mg PO DAILY PRN 10/11/18 03/15/19 History multivitamin 1 tab PO DAILY 10/11/18 03/15/19 History sotalol 160 mg PO Q12H 10/11/18 03/15/19 History verapamil 240 mg PO Q12H 10/26/18 03/15/19 History aspirin 81 mg PO DAILY 03/07/19 03/15/19 History levothyroxine 175 mcg PO DAILY 03/15/19 03/15/19 History metformin 500 mg PO BID 03/15/19 03/15/19 History mupirocin 1 applic TOPICAL PRN PRN 03/15/19 03/15/19 History oxycodone 5 - 10 mg PO Q3H PRN 03/15/19 03/15/19 History sodium fluoride-pot nitrate 1 applic DENTAL BID 03/15/19 03/15/19 History [PreviDent 5000 Sensitive] Allergies Allergy/AdvReac Type Severity Reaction Status Date / Time apixaban [From Eliquis] AdvReac Severe MASSIVE GI Verified 10/26/18 10:20 BLEED warfarin [WARFARIN] AdvReac Severe MASSIVE Verified 10/26/18 10:20 HEMORRHAGING Review of Systems Constitutional Constitutional: Reports system reviewed and no additional complaints, except as documented Eyes Eyes: Reports system reviewed; no additional complaints, except as documented ENT Ears, Nose, Mouth, and Throat: Yes system reviewed; no additional complaints, except as documented Cardiovascular Cardiovascular: Denies chest pain, Reports lightheadedness, Denies shortness of breath and Reports slow heart rate Respiratory Respiratory: Reports system reviewed and no additional complaints, except as documented and Denies dyspnea Gastrointestinal Gastrointestinal: Reports system reviewed and no additional complaints, except as documented Genitourinary Genitourinary: Reports system reviewed and no additional complaints, except as documented Musculoskeletal Musculoskeletal: Reports system reviewed; no additional complaints, except as documented Integumentary/Breasts Skin/Breast: Reports system reviewed and no additional complaints, except as documented Neurologic Neurologic: Reports system reviewed and no additional complaints, except as documented Psychiatric Psychiatric: Reports system reviewed and no additional complaints, except as documented Endocrine Endocrine: Reports system reviewed and no additional complaints, except as documented Hematologic/Lymphatic Hematologic/Lymphatic: Reports system reviewed and no additional complaints, except as documented Allergic/Immunologic Allergic/Immunologic: Reports system reviewed and no additional complaints, except as documented Exam Vital Signs (past 8 hours): - 03/15/19 14:45 03/15/19 15:45 03/15/19 16:30 Temperature 96.2 F L 97.3 F L Pulse Rate 48 L 47 L 42 L Respiratory Rate 16 16 Blood Pressure 138/74 100/45 L 116/52 L Pulse Oximetry 100 97 03/15/19 19:00 03/15/19 19:30 03/15/19 20:00 Temperature Pulse Rate 56 L 52 L 48 L Respiratory Rate Blood Pressure 150/71 H 107/48 L 100/47 L Pulse Oximetry 98 03/15/19 20:30 03/15/19 21:00 03/15/19 21:30 Temperature Pulse Rate 54 L 47 L 46 L Respiratory Rate Blood Pressure 100/52 L 120/58 L 122/66 Pulse Oximetry Fraction of Inspired Oxygen 28 Oxygen Delivery Method Nasal Cannula Oxygen Flow Rate 0 Narrative Exam Narrative: Pleasant middle-aged female no acute distress HEENT exam unremarkable Oropharynx clear Neck is supple no JVD no bruit Heart bradycardic no murmur Lungs Clear to auscultation Abdomen soft nontender Lower extremities trace edema Neuro exam awake alert oriented no focal deficits Skin warm and dry Objective Labs Result Diagrams: 03/15/19 18:53 03/15/19 18:53 Labs: Laboratory Results - last 24 hr 03/15/19 03/15/19 03/15/19 18:53 18:53 18:53 WBC 9.7 RBC 4.16 Hgb 12.2 Hct 37.2 MCV 89.4 MCH 29.4 MCHC 32.9 RDW 13.6 Plt Count 286 Neut % (Auto) 66.9 Lymph % (Auto) 19.8 L [place] % (Auto) 10.3 Eos % (Auto) 2.2 Baso % (Auto) 0.8 Neut # (Auto) 6500 Lymph # (Auto) 1900 [place] # (Auto) 1000 H Eos # (Auto) 200 Baso # (Auto) 100 Sodium 141 Potassium 4.0 Chloride 103 Carbon Dioxide 30 BUN 24 H Creatinine 0.70 Estimated GFR > 60.0 BUN/Creatinine Ratio 34.3 H Glucose 79 L Calcium 9.6 Total Bilirubin 0.9 AST 32 ALT 24 Alkaline Phosphatase 68 Total Creatine Kinase 135 CK-MB (CK-2) 1.62 CK-MB (CK-2) Rel Index 1.2 L Troponin I < 0.012 Total Protein 6.9 Albumin 4.1 Globulin 2.8 Albumin/Globulin Ratio 1.5 Assessment & Plan Assessment & Plan narrative: One. Postoperative bradycardia. Most likely due to medications. Plan to hold the sotalol and verapamil. Will continue with the as needed dosing of the glycopyrrolate and then re-evaluate in the morning. 2. Persistent atrial fibrillation controlled is into sinus rhythm with sotalol. 3. hypothyroid she will continue with her level thyroid 4. Diabetes type 2 plan to resume her metformin
[2019-03-16] VITALS (8 sets, daily range): BP systolic 99–114; BP diastolic 42–57; PULSE 50–67; RESP 16–17; TEMP 36.4–37.7; O2SAT 97–99
[2019-03-16] MEDS: CEFAZOLIN VIAL 3 GM in SODIUM CHLORIDE 0.9% 100 ML 200 ML IV (01:05)
[2019-03-16] MEDS: LEVOTHYROXINE 75 MCG TABLET PO (05:43)
[2019-03-16] MEDS: LEVOTHYROXINE 100 MCG TABLET PO (05:43)
[2019-03-16 06:15] LABS: Hematocrit 34.8 % (36-46); Hemoglobin 11.4 g/dL (12.0-16.0)
--- NOTE | 2019-03-16 06:37 | PC.NURSE ---
Pt is AxOx3, Hypotensive with SBP in the 90s, asymptomatic however. Tele: Sinus Tj. HR has been in the mid 40s to mid 50s throughout the night. Have not seen HR dip lower that 45. LR@125mL/hr running as ordered. GABBY to right knee is functioning well without incident. Pan is patent with clear yellow urine. Discussed removing pan this morning. Pt is on board, but would like to wait to just a little later in the morning to make sure her mobility is okay. She is eager to get OOB and start walking around today. SCDs on throughout the night. Tolerating room air.
--- NOTE | 2019-03-16 07:34 | P.PN_ITS ---
Subjective Date Patient Seen: 03/16/19 Time Patient Seen: 07:34 Interval history: She is seen today to follow-up her postoperative bradycardia/atrial fibrillation. Her primary care is with physician communications assistant layo in [place] and her cardiology is with Dr. Llamas in [place], for her atrial fibrillation. Turns out that she lost 160 lb recently after bariatric surgery, but had no subsequent adjustment in her verapamil and sotalol doses. Perhaps that explains her bradycardia postoperative yesterday. She says she feels much better today and felt actually lightheaded yesterday when her heart rate was so slow. The heart rate is back up into the mid 50s today. Her pressure remains somewhat low also at 101/45, sometimes slightly lower than that. Exam Vital Signs (past 8 hours): - 03/16/19 00:15 03/16/19 04:18 Temperature 97.8 F 98.3 F Pulse Rate 51 L 50 L Respiratory Rate 16 16 Blood Pressure 99/42 L 101/45 L Pulse Oximetry 99 99 Fraction of Inspired Oxygen 28 Oxygen Delivery Method Nasal Cannula Oxygen Flow Rate 0 Narrative Exam Narrative: She is alert and oriented x3. She speaks in a very soft voice which appears to be her baseline. Heart is regular rate and rhythm with a 1/6 systolic ejection murmur. Lungs are clear to auscultation bilaterally. Extremities have trace edema bilaterally. Objective Labs Result Diagrams: 03/16/19 05:08 03/15/19 18:53 Labs: Laboratory Results - last 24 hr 03/15/19 03/15/19 03/15/19 18:53 18:53 18:53 WBC 9.7 RBC 4.16 Hgb 12.2 Hct 37.2 MCV 89.4 MCH 29.4 MCHC 32.9 RDW 13.6 Plt Count 286 Neut % (Auto) 66.9 Lymph % (Auto) 19.8 L [place] % (Auto) 10.3 Eos % (Auto) 2.2 Baso % (Auto) 0.8 Neut # (Auto) 6500 Lymph # (Auto) 1900 [place] # (Auto) 1000 H Eos # (Auto) 200 Baso # (Auto) 100 Sodium 141 Potassium 4.0 Chloride 103 Carbon Dioxide 30 BUN 24 H Creatinine 0.70 Estimated GFR > 60.0 BUN/Creatinine Ratio 34.3 H Glucose 79 L Calcium 9.6 Total Bilirubin 0.9 AST 32 ALT 24 Alkaline Phosphatase 68 Total Creatine Kinase 135 CK-MB (CK-2) 1.62 CK-MB (CK-2) Rel Index 1.2 L Troponin I < 0.012 Total Protein 6.9 Albumin 4.1 Globulin 2.8 Albumin/Globulin Ratio 1.5 03/16/19 05:08 WBC RBC Hgb 11.4 L Hct 34.8 L MCV MCH MCHC RDW Plt Count Neut % (Auto) Lymph % (Auto) [place] % (Auto) Eos % (Auto) Baso % (Auto) Neut # (Auto) Lymph # (Auto) [place] # (Auto) Eos # (Auto) Baso # (Auto) Sodium Potassium Chloride Carbon Dioxide BUN Creatinine Estimated GFR BUN/Creatinine Ratio Glucose Calcium Total Bilirubin AST ALT Alkaline Phosphatase Total Creatine Kinase CK-MB (CK-2) CK-MB (CK-2) Rel Index Troponin I Total Protein Albumin Globulin Albumin/Globulin Ratio Assessment & Plan Assessment & Plan narrative: 1. Postoperative bradycardia. Most likely due to medications. -continue to hold the sotalol and verapamil. Will continue with the as needed dosing of the glycopyrrolate. -final decision on discharge doses of verapamil and sotalol will be safer to make tomorrow when presumably her heart rate will be back up. -TSH ordered 2. Persistent atrial fibrillation - controlled and is in sinus rhythm with sotalol. -will probably resume Sotalol and stop Verapamil when discharges home, probably tomorrow 3. Hypothyroidism - she will continue with her home dosing of Synthroid -TSH ordered 4. Diabetes type 2 - resume her metformin -follow blood sugars
[2019-03-16] MEDS: OXYCODONE IR 5 MG TABLET PO ×4 (09:12→20:28)
[2019-03-16] MEDS: DOCUSATE 100 MG CAPSULE 200 MG PO ×2 (09:12→20:30)
[2019-03-16] MEDS: MELOXICAM 7.5 MG TABLET 15 MG PO (09:12)
[2019-03-16] MEDS: ASPIRIN EC 81 MG TABLET PO ×2 (09:13→20:30)
[2019-03-16] MEDS: METFORMIN XR 500 MG TABLET PO (09:13)
[2019-03-16] MEDS: ACETAMINOPHEN 325 MG TABLET 975 MG PO ×3 (09:13→20:29)
--- NOTE | 2019-03-16 09:15 | P.PN_ITS ---
Subjective Date Patient Seen: 03/16/19 Time Patient Seen: 09:15 Interval history: POD 1 s/p right total knee arthroplasty with Dr. Walker. Patient had bradycardia yesterday following surgery. Hospitalist was consulted. She has a history of persistent atrial fibrillation. Postoperatively she has had some prolonged episodes of bradycardia with some lightheadedness. Heart rate was in the 30s. She did receive 2 doses of glycopyrolate per anesthesia that did help bring the heart rate back up into the 40s and 50s. She is also on sotalol and verapamil for her AFib, and this has been held postoperatively. She has not been up with physical therapy yet. Her pain is well controlled. ASA for VTE prophylaxis. Exam Vital Signs (past 8 hours): - 03/16/19 04:18 03/16/19 07:50 03/16/19 08:34 Temperature 98.3 F 99.5 F Pulse Rate 50 L 55 L 56 L Respiratory Rate 16 16 16 Blood Pressure 101/45 L 102/55 L Pulse Oximetry 99 99 98 Fraction of Inspired Oxygen 21 Oxygen Delivery Method Room Air Oxygen Flow Rate 0 Narrative Exam Narrative: Patient lying in bed in no acute distress. She is alert and oriented x3. SCDs on and functioning. ASA for DVT prophylaxis. Pulses are symmetrical. Renzo wrap in place. Bonnie dressing on and functioning. Calves are soft, compressible, nontender bilaterally. She is able to actively dorsiflex plantar flex. Objective Labs Result Diagrams: 03/16/19 05:08 03/15/19 18:53 Labs: Laboratory Results - last 24 hr 03/15/19 03/15/19 03/15/19 18:53 18:53 18:53 WBC 9.7 RBC 4.16 Hgb 12.2 Hct 37.2 MCV 89.4 MCH 29.4 MCHC 32.9 RDW 13.6 Plt Count 286 Neut % (Auto) 66.9 Lymph % (Auto) 19.8 L [place] % (Auto) 10.3 Eos % (Auto) 2.2 Baso % (Auto) 0.8 Neut # (Auto) 6500 Lymph # (Auto) 1900 [place] # (Auto) 1000 H Eos # (Auto) 200 Baso # (Auto) 100 Sodium 141 Potassium 4.0 Chloride 103 Carbon Dioxide 30 BUN 24 H Creatinine 0.70 Estimated GFR > 60.0 BUN/Creatinine Ratio 34.3 H Glucose 79 L Calcium 9.6 Total Bilirubin 0.9 AST 32 ALT 24 Alkaline Phosphatase 68 Total Creatine Kinase 135 CK-MB (CK-2) 1.62 CK-MB (CK-2) Rel Index 1.2 L Troponin I < 0.012 Total Protein 6.9 Albumin 4.1 Globulin 2.8 Albumin/Globulin Ratio 1.5 03/16/19 05:08 WBC RBC Hgb 11.4 L Hct 34.8 L MCV MCH MCHC RDW Plt Count Neut % (Auto) Lymph % (Auto) [place] % (Auto) Eos % (Auto) Baso % (Auto) Neut # (Auto) Lymph # (Auto) [place] # (Auto) Eos # (Auto) Baso # (Auto) Sodium Potassium Chloride Carbon Dioxide BUN Creatinine Estimated GFR BUN/Creatinine Ratio Glucose Calcium Total Bilirubin AST ALT Alkaline Phosphatase Total Creatine Kinase CK-MB (CK-2) CK-MB (CK-2) Rel Index Troponin I Total Protein Albumin Globulin Albumin/Globulin Ratio Assessment & Plan Post-op Postoperative Procedures Operation Date: 03/15/19 08:45 Actual Procedures Side Surgeon p Total Knee Arthroplasty Right Don Walker MD Patient mobilized physical therapy today. Continue ASA and SCDs. Appreciate hospitalist management of bradycardia. Patient will discharged once medically stable in next 1-2 days.
--- NOTE | 2019-03-16 10:25 | PT.IPTN ---
Current Diagnoses Unilateral primary osteoarthritis, right knee (03/15/19) Surgery Performed Operation Date: 03/15/19 08:45 Actual Procedures p Total Knee Arthroplasty(Right) - Don Walker MD Physical Therapy Treatment Note M2 PT-IP Current Condition Start: 03/15/19 17:03 Freq: NEEDED Status: Active Protocol: Document 03/15/19 16:15 AB (Rec: 03/15/19 17:16 AB [id number]) Physical Therapy Current Condition Current Condition Evaluation Date 03/15/19 Treatment Diagnosis s/p R TKA; difficulty in walking Onset Date 03/15/19 Weight Bearing Status Weight Bearing Status Weight Bear as Tolerated M3 PT-IP Subjective Start: 03/15/19 17:03 Freq: NEEDED Status: Active Protocol: Document 03/16/19 10:25 GGD (Rec: 03/16/19 10:59 GGD [email or web address]) Subjective Physical Therapy Visit Type Type Treatment Note Visit Start Time 10:00 Visit Stop Time 10:25 Physical Therapy Visit Comments Patient Comments Pt states her knee hurts to move. Therapy Pain Assessment Pain When Pain Assessed At Rest Pain Present Pain Present Pain Reported Location Right Knee Intensity 5 Scale Used Numeric (1 - 10) Pain Management Techniques Apply Cold Re-positioning Timing of Activity with Medications M4 PT-IP Mobility and Gait Start: 03/15/19 17:03 Freq: NEEDED Status: Active Protocol: Document 03/16/19 10:25 GGD (Rec: 03/16/19 10:59 GGD [email or web address]) PT-Bed Mobility Assessment Supine to Sit Supine to Sit Minimal Assistance Sit to Supine Sit to Supine Minimal Assistance Scooting Scooting to Edge of Bed Standby Assistance PT-Transfer Assessment Sit to and From Stand Sit to and from Stand Minimal Assistance 1 Person Assistance Use of Upper Extremities Equipment Transfer Assistive Device Gait Belt Front Wheeled Walker Orthotic/Prosthetic Devices or Brace: No Transfers Transfer Destination Bed Transfer Ability Level of Assist Contact Guard Assistance Comments Mobility Comments Min A with right LE for bed mobility. Gait Assessment Gait Gait Assistance Required: Contact Guard Assist Distance (Feet) 30 Able to Maintain Weight Bearing Status Yes During Gait Assistive Devices Assistive Device Gait Belt Front Wheeled Walker Orthotic/Prosthetic Devices or Brace: No Gait Deviations General Gait Pattern Antalgic Decreased Stride Length Decreased Feet Clearance Factors Limiting Gait Function Factors Limiting Gait Function Decreased Activity Tolerance Decreased Strength Limited Range of Motion Pain Poor Balance M5 PT-IP Objective Assessments Start: 03/15/19 17:03 Freq: NEEDED Status: Active Protocol: Document 03/15/19 16:15 AB (Rec: 03/15/19 17:16 AB [id number]) Orientation Orientation/Cognition Level of Alertness Alert Orientation Name Age Birthday Month Date Year Day of Week Place Situation Language Function Ability No Deficits Noted Safety Awareness Understands Safety Issues Memory Description No Deficits Noted Gross Range of Motion Lower Extremity ROM Impairments R knee flexion: ~ 70 deg Strength Lower Extremity Strength Assessment Bilaterally Impaired Hip 3+/5 Knee 4-/5 Coordination Assessment Gross Coordination Gross Coordination WNL Sensation Assessment Sensation Gross Sensation WNL Muscle Tone Muscle Tone WNL Yes M6 PT-IP Treatment Start: 03/15/19 17:03 Freq: NEEDED Status: Active Protocol: Document 03/16/19 10:25 GGD (Rec: 03/16/19 10:59 GGD [email or web address]) Physical Therapy Treatment Exercises Exercises Ankle Pumps Quad Sets Heel Slides Seated Knee Flexion/Extension M7 PT-IP Assessment and Plan Start: 03/15/19 17:03 Freq: NEEDED Status: Active Protocol: Document 03/16/19 10:25 GGD (Rec: 03/16/19 10:59 GGD [email or web address]) PT Summary Assessment and Plan Summary Assessment Summary Pt is progressing slowly. She had increase C/O pain with wieght bearing. She need min A with LE for bed mobility. Seh will need stair training before D/C home. Frequency of Treatment Frequency Of Treatment Twice a Day Treatment Plan Physical Therapy Treatment Plan Bed Mobility Training Transfer Training Gait Training Therapeutic Exercise Balance Retraining Post Op Education Discharge Planning Hot or Cold Pack Neuromuscular Re-ed Coordination Retraining Manual Therapy Recommendations To Nursing Amount of Assist Needed 1 Person Assist Discharge Recommendations PT Discharge Recommendations Home with Assistance Outpatient PT
[2019-03-16 11:32] LABS: TSH w/ Reflex to FT4 0.19 uIU/mL (0.47-4.68)
[2019-03-16 12:01] LABS: Free T4, Direct Thyroxine 1.13 ng/dL (0.78-2.19)
--- NOTE | 2019-03-16 12:27 | PC.NURSE ---
Addendum entered by Lexie Stone R.N. 03/16/19 13:48: pt given another percolone for discomfort and helpful. She is visiting with her at this time. Original Note: PT getting oxycodone for discomfort to r.knee. Bonnie drain and dressing intact. Working with P.T. and tolerating well. Pt has a pan catheter that will be taken out soon. Explained that we need to take out chava so that she does not develope a uti. Pts cms wnl and ppx2. Visiting with now.
--- NOTE | 2019-03-16 15:58 | CM.DANOTE ---
Discharge Planning/Care Management DCP: assessment: case received, EMR reviewed and discussed case in Team Rounds. Met now with pt and her Keith Rudolph. Introduced self and role. Pt is a 58 year old female who admitted yesterday for a planned R TKA. OF NOTE: she had a L TKA in September 2018. Surgeon: Dr. Walker. Payer: Bishnu ELENA. PCP: Adeola Camacho. Hospitalist team is consulting: pt with bradycardia and low BP last evening. Dr. Jo noted in Rounds that this may have to do with pt's recent significant weight loss and need for medication adjustment during that process. Pt and her plan to do what worked well for them during the last knee surgery. She went home with his supportive assist and went to outpt PT at [facility] in [place]. (the couple reside in [place].) PT is working with pt and she in on track for this plan depending on how the medical stability goes. Pt says she is very pleased that the hospitalists are following her on this. P: will check in tomorrow and follow prn as POC unfolds. CM Discharge Assessment Start: 03/16/19 15:56 Freq: Status: Active Protocol: Document 03/16/19 15:56 ITV (Rec: 03/16/19 15:57 ITV [id number]) Discharge Planning Assessment Advance Directives? No Advance Directives on File No History Provided By Patient Family Member Medical Record Has Patient been admitted in last 30 No days? Prior Living Arrangements House Household Members spouse Transportation Arrangement spouse will take her home at d /c Review Status In Process Next Review Type Continued Stay Review Pre-Anesthesia Assessment Start: 03/07/19 10:48 Freq: Status: Active Protocol: Document 03/07/19 10:48 CAB (Rec: 03/07/19 11:15 CAB [id number]) Pre-Anesthesia Assessment Patient Information Reviewed Via Phone Assessment Assessment Completed With Patient Diagnostic Results BMP/CMP CBC EKG Comment Outside labs/EKG scanned to record Primary Care Provider Adeola Camacho Seen Specialist in Last 12 Months Yes Specialist Seen Orthopedist Primary Language Mexican Preferred Language Mexican 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 Height 167.64 cm Weight 120.202 kg Body Mass Index (BMI) 42.7 Hearing Ability Normal Visual Assist Glasses Dentition Type Teeth, Natural Present Barriers to Learning None Other Aids Yes: BiPAP Hx Anesthesia Reactions No Hx Family Anesthesia Reaction No Hx Malignant Hyperthermia No Hx Blood Transfusions Yes: Yes: r/t GI bleed in 2013 Hx Blood Transfusion Reaction No Anesthesia Review Requested No 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 No Does patient have GIFFORD/SOB Yes: Yes: Resolved with gastric sleeve surgery Hx Sleep Apnea Yes CPAP/BIPAP use prescribed and used routinely Will Bring CPAP/BIPAP DOS Yes Currently Taking a Beta Amarilys Sotalol Can You Climb a Flight of Stairs Without Yes SOB Hx Chest Pain No Hx SOB Yes: Yes: Resolved with gastric sleeve surgery Hx Syncope or Dizziness No Anti-Coagulant Therapy Yes: Aspirin 81mg daily-pt advised to continue per cardiology Has a Beck Tender Yes: Dr. Evans - last visit 2016, scanned to record Cardiac Testing No Hx Pacemaker/ICD No Pacemaker Rep Required? No Diet Type At Home Regular Low Carb dysphagia No Urinary Catheter Present No Hx Urinary Self Catheterization No Diabetes Yes: Pt checks BS a few times a week HgbA1C 5.0 Date 11/28/18 Patient No Lactating No Hx Drug Resistant Organism No Presence of External or Internal Medical Yes: BiPAP, Left knee Devices prosthesis Have you traveled outside the [facility] in the last 30 days? Marital Status Lives With spouse Prior Living Arrangements House Number of Floors (Floors) One Floor Number of Stairs To Enter/Railing? 4 stairs, railing present Support System Spouse Does the Patient Have Assistance After Yes Surgery Patient Discharge Plan Description Return Home Feels Safe in Current Environment Yes Been Physically Hurt or Threatened By a No Person in Current Environment Do you have thoughts of harming yourself None or others? Are you currently considering suicide? No Do you have a plan to hurt yourself or No Plan others? Do You Have Any Spiritual Beliefs That No May Affect Your HC Choices? Do You Have Any Cultural Practices That No May Affect Your HC Choices? Spiritual Referral None Comment Yarsani Who Can We Speak to About Patient's Care Family, friends Identifying Code for Release of Patient Declines to issue Information Health Care Proxy/Next of Kin Donnie () Health Care Proxy Emergency Contact Name Donnie () Emergency Contact Advance Directives? No: Information mailed to patient previously Advance Directives on File No Requested Patient Bring Advanced Yes Directives DOS PAC Instructions Bring CPAP/BIPAP Do not shave/clip surgical site Durable medical equipment Medications to take/avoid Nasal antibiotic No ETOH/petroleum product on skin DOS NPO Post-op transportation Pre-surgical wash Sensory aids Sturdy shoes/comfortable clothes Do not bring valuables and remove jewelry
--- NOTE | 2019-03-16 16:05 | PT.IPTN ---
Current Diagnoses Unilateral primary osteoarthritis, right knee (03/15/19) Surgery Performed Operation Date: 03/15/19 08:45 Actual Procedures p Total Knee Arthroplasty(Right) - Don Walker MD Physical Therapy Treatment Note M2 PT-IP Current Condition Start: 03/15/19 17:03 Freq: NEEDED Status: Active Protocol: Document 03/15/19 16:15 AB (Rec: 03/15/19 17:16 AB [id number]) Physical Therapy Current Condition Current Condition Evaluation Date 03/15/19 Treatment Diagnosis s/p R TKA; difficulty in walking Onset Date 03/15/19 Weight Bearing Status Weight Bearing Status Weight Bear as Tolerated M3 PT-IP Subjective Start: 03/15/19 17:03 Freq: NEEDED Status: Active Protocol: Document 03/16/19 16:45 GGD (Rec: 03/16/19 16:49 GGD [email or web address]) Subjective Physical Therapy Visit Type Type Treatment Note Visit Start Time 15:10 Visit Stop Time 15:40 Total Visit Minutes 30 Physical Therapy Visit Comments Patient Comments Pt states she feeling a little better. Therapy Pain Assessment Pain When Pain Assessed At Rest Pain Present Pain Present Pain Reported M4 PT-IP Mobility and Gait Start: 03/15/19 17:03 Freq: NEEDED Status: Active Protocol: Document 03/16/19 16:45 GGD (Rec: 03/16/19 16:49 GGD [email or web address]) PT-Bed Mobility Assessment Supine to Sit Supine to Sit Contact Guard Assistance Sit to Supine Sit to Supine Minimal Assistance Scooting Scooting to Edge of Bed Standby Assistance PT-Transfer Assessment Sit to and From Stand Sit to and from Stand Contact Guard Assistance 1 Person Assistance Use of Upper Extremities Equipment Transfer Assistive Device Gait Belt Front Wheeled Walker Orthotic/Prosthetic Devices or Brace: No Transfers Transfer Destination Bed Transfer Ability Level of Assist Contact Guard Assistance Comments Mobility Comments Min A with right LE for bed mobility. Gait Assessment Gait Gait Assistance Required: Contact Guard Assist Distance (Feet) 60 Able to Maintain Weight Bearing Status Yes During Gait Assistive Devices Assistive Device Gait Belt Front Wheeled Walker Orthotic/Prosthetic Devices or Brace: No Gait Deviations General Gait Pattern Antalgic Decreased Stride Length Decreased Feet Clearance Factors Limiting Gait Function Factors Limiting Gait Function Decreased Activity Tolerance Decreased Strength Limited Range of Motion Pain Poor Balance M5 PT-IP Objective Assessments Start: 07/17/19 17:03 Freq: NEEDED Status: Active Protocol: Document 03/15/19 16:15 AB (Rec: 03/15/19 17:16 AB [id number]) Orientation Orientation/Cognition Level of Alertness Alert Orientation Name Age Birthday Month Date Year Day of Week Place Situation Language Function Ability No Deficits Noted Safety Awareness Understands Safety Issues Memory Description No Deficits Noted Gross Range of Motion Lower Extremity ROM Impairments R knee flexion: ~ 70 deg Strength Lower Extremity Strength Assessment Bilaterally Impaired Hip 3+/5 Knee 4-/5 Coordination Assessment Gross Coordination Gross Coordination WNL Sensation Assessment Sensation Gross Sensation WNL Muscle Tone Muscle Tone WNL Yes M6 PT-IP Treatment Start: 03/15/19 17:03 Freq: NEEDED Status: Active Protocol: Document 03/16/19 16:45 GGD (Rec: 03/16/19 16:49 GGD [email or web address]) Physical Therapy Treatment Exercises Exercises Ankle Pumps Quad Sets Heel Slides Seated Knee Flexion/Extension M7 PT-IP Assessment and Plan Start: 03/15/19 17:03 Freq: NEEDED Status: Active Protocol: Document 03/16/19 16:45 GGD (Rec: 03/16/19 16:49 GGD [email or web address]) PT Summary Assessment and Plan Summary Assessment Summary Pt is improving with mobility. She was able to progress gait distance. She needed less assist with LE for bed mobility. Frequency of Treatment Frequency Of Treatment Twice a Day Treatment Plan Physical Therapy Treatment Plan Bed Mobility Training Transfer Training Gait Training Therapeutic Exercise Balance Retraining Post Op Education Discharge Planning Hot or Cold Pack Neuromuscular Re-ed Coordination Retraining Manual Therapy Other Recommendations and Next Treatment stair training Focus Recommendations To Nursing Amount of Assist Needed 1 Person Assist Discharge Recommendations PT Discharge Recommendations Home with Assistance Outpatient PT
--- NOTE | 2019-03-16 19:16 | PM.DS.1 ---
History of Present Illness Date Patient Seen: 03/16/19 Time Patient Seen: 19:20 Chief complaint: Right [id number] Discharge Providers Date of admission: 03/15/19 07:21 Primary care physician: Adeola Camacho PA-C Consults: 03/15/19 12:06 Consult to Discharge Planning Routine Comment: Consult to Physical Therapy Evaluate & Treat Comment: Physician Instructions: postop TKA protocol Consult to Respiratory Therapy Evaluate & Treat Comment: Physician Instructions: Evaluate and treat Discharge provider: Gloria Jo MD Exam Vital Signs (past 8 hours): - 03/16/19 11:50 03/16/19 15:15 Temperature 99.8 F H 98.6 F Pulse Rate 57 L 63 Respiratory Rate 17 16 Blood Pressure 109/57 L 107/56 L Pulse Oximetry 97 97 Fraction of Inspired Oxygen 21 Oxygen Delivery Method Room Air,CPAP Oxygen Flow Rate 0 Objective Labs Result Diagrams: 03/16/19 05:08 03/15/19 18:53 Labs: Laboratory Results - last 24 hr 03/15/19 03/15/19 03/16/19 18:53 18:53 05:08 Hgb 11.4 L Hct 34.8 L Sodium 141 Potassium 4.0 Chloride 103 Carbon Dioxide 30 BUN 24 H Creatinine 0.70 Estimated GFR > 60.0 BUN/Creatinine Ratio 34.3 H Glucose 79 L Calcium 9.6 Total Bilirubin 0.9 AST 32 ALT 24 Alkaline Phosphatase 68 Total Creatine Kinase 135 CK-MB (CK-2) 1.62 CK-MB (CK-2) Rel Index 1.2 L Troponin I < 0.012 Total Protein 6.9 Albumin 4.1 Globulin 2.8 Albumin/Globulin Ratio 1.5 TSH Free T4 03/16/19 06:11 Hgb Hct Sodium Potassium Chloride Carbon Dioxide BUN Creatinine Estimated GFR BUN/Creatinine Ratio Glucose Calcium Total Bilirubin AST ALT Alkaline Phosphatase Total Creatine Kinase CK-MB (CK-2) CK-MB (CK-2) Rel Index Troponin I Total Protein Albumin Globulin Albumin/Globulin Ratio TSH 0.19 L Free T4 1.13 Discharge Plan Discharge Med Rec/Prescriptions Prescriptions: No Action levothyroxine 175 mcg tablet 175 mcg PO DAILY RF: 0 metformin 500 mg tablet extended release 24 hr 500 mg PO BID RF: 0 mupirocin 2 % ointment 1 applic topical PRN PRN (Reason: skin condition) RF: 0 oxycodone 5 mg tablet 5 - 10 mg PO Q3H PRN (Reason: post op pain) RF: 0 PreviDent 5000 Sensitive 1.1-5 % paste 1 applic dental BID RF: 0 multivitamin Tablet 1 tab PO DAILY RF: 0 sotalol 160 mg Tablet 160 mg PO Q12H RF: 0 acetaminophen [Tylenol Extra Strength] 500 mg Tablet 1,000 mg PO Q6H PRN (Reason: Pain) RF: 0 losartan 100 mg Tablet 100 mg PO DAILY RF: 0 iron 18 mg Tablet 18 mg PO DAILY RF: 0 meloxicam 15 mg Tablet 15 mg PO DAILY PRN (Reason: pain) RF: 0 verapamil 240 mg Tablet Extended Release 240 mg PO Q12H RF: 0 aspirin 81 mg Tablet,Delayed Release (Dr/Ec) 81 mg PO DAILY RF: 0 Discharge Orders: Discharge (Order); Ordered 03/16/19 Ordered By: Gloria Jo Discharge Data Primary Care Provider: Adeola Camacho Attending Provider: Don Walker Admit Date/Time: 03/15/19 07:21
[2019-03-17] MEDS: OXYCODONE IR 5 MG TABLET PO ×4 (02:16→14:10)
[2019-03-17 05:23] VITALS: BP 118/65; PULSE 61; RESP 16; TEMP 36.5; O2SAT 98
[2019-03-17] MEDS: LEVOTHYROXINE 100 MCG TABLET PO (06:05)
[2019-03-17] MEDS: LEVOTHYROXINE 75 MCG TABLET PO (06:05)
[2019-03-17 09:16] VITALS: BP 127/65; PULSE 63; RESP 15; TEMP 37.3; O2SAT 99
--- NOTE | 2019-03-17 09:20 | PM.PN.1 ---
Subjective Date Patient Seen: 03/17/19 Time Patient Seen: 09:20 Interval history: She is feeling better this morning she has not had any significant bradycardia she is not feeling dizziness Exam Vital Signs (past 8 hours): - 03/17/19 05:23 03/17/19 09:16 Temperature 97.7 F 99.1 F Pulse Rate 61 63 Respiratory Rate 16 15 Blood Pressure 118/65 127/65 Pulse Oximetry 98 99 Fraction of Inspired Oxygen 21 Oxygen Delivery Method Room Air Oxygen Flow Rate 0 Narrative Exam Narrative: She is awake and alert no acute distress Oropharynx clear Neck is supple Heart regular rhythm new and no more bradycardia she has normal rate Lungs are clear Abdomen soft and nontender Neuro exam unremarkable Objective Labs Result Diagrams: 03/16/19 05:08 03/15/19 18:53 Labs: Laboratory Results - last 24 hr 03/16/19 06:11 TSH 0.19 L Free T4 1.13 Assessment & Plan Assessment & Plan narrative: 1. Postoperative bradycardia. Most likely due to medications. This has resolved. Plan going forward we will stop the verapamil and cut the sotalol dose down. The patient has dropped significant amounts of weight over the past year since she had her bariatric surgery and probably does not need his large dose of sotalol as she previously had. So going forward her new dose will be 80 mg twice a day of sotalol. This will need to be followed up with her primary care physician and Cardiology upon discharge. At this point the patient is medically stable for discharge and will let Orthopedics decide when she is ready from orthopedic standpoint for discharge 2. Persistent atrial fibrillation - controlled and is in sinus rhythm with sotalol. 3. Hypothyroidism - she will continue with her home dosing of Synthroid -TSH ordered 4. Diabetes type 2 - resume her metformin -follow blood sugars Time Spent With Patient Time with patient: 25 - 35 minutes
[2019-03-17] MEDS: ASPIRIN EC 81 MG TABLET PO (09:59)
[2019-03-17] MEDS: ACETAMINOPHEN 325 MG TABLET 975 MG PO (09:59)
[2019-03-17] MEDS: LOSARTAN 50 MG TABLET 100 MG PO (09:59)
[2019-03-17] MEDS: MELOXICAM 7.5 MG TABLET 15 MG PO (09:59)
[2019-03-17] MEDS: METFORMIN XR 500 MG TABLET PO (09:59)
[2019-03-17] MEDS: SODIUM CHLORIDE 0.9% FLUSH 10 ML IV (10:00)
[2019-03-17] MEDS: SOTALOL 80 MG TABLET PO (10:00)
--- NOTE | 2019-03-17 11:00 | PT.IPTN ---
Current Diagnoses Unilateral primary osteoarthritis, right knee (03/15/19) Surgery Performed Operation Date: 03/15/19 08:45 Actual Procedures p Total Knee Arthroplasty(Right) - Don Walker MD Physical Therapy Treatment Note M2 PT-IP Current Condition Start: 03/15/19 17:03 Freq: NEEDED Status: Active Protocol: Document 03/15/19 16:15 AB (Rec: 03/15/19 17:16 AB [id number]) Physical Therapy Current Condition Current Condition Evaluation Date 03/15/19 Treatment Diagnosis s/p R TKA; difficulty in walking Onset Date 03/15/19 Weight Bearing Status Weight Bearing Status Weight Bear as Tolerated M3 PT-IP Subjective Start: 03/15/19 17:03 Freq: NEEDED Status: Active Protocol: Document 03/17/19 11:00 GGD (Rec: 03/17/19 11:22 GGD [id number]) Subjective Physical Therapy Visit Type Type Treatment Note Visit Start Time 10:25 Visit Stop Time 11:00 Total Visit Minutes 35 Number of LABOR RELATIONS MANAGER Visits 3 Physical Therapy Visit Comments Patient Comments Pt states she would like to try stairs. Therapy Pain Assessment Pain When Pain Assessed At Rest Pain Present Pain Present Pain Reported Location Right Knee Intensity 4 Scale Used Numeric (1 - 10) M4 PT-IP Mobility and Gait Start: 03/15/19 17:03 Freq: NEEDED Status: Active Protocol: Document 03/17/19 11:00 GGD (Rec: 03/17/19 11:22 GGD [id number]) PT-Bed Mobility Assessment Supine to Sit Supine to Sit Contact Guard Assistance Sit to Supine Sit to Supine Contact Guard Assistance Scooting Scooting to Edge of Bed Standby Assistance PT-Transfer Assessment Sit to and From Stand Sit to and from Stand Contact Guard Assistance 1 Person Assistance Use of Upper Extremities Equipment Transfer Assistive Device Gait Belt Front Wheeled Walker Orthotic/Prosthetic Devices or Brace: No Transfers Transfer Destination Bed Wheelchair Transfer Ability Level of Assist Contact Guard Assistance Gait Assessment Gait Gait Assistance Required: Contact Guard Assist Distance (Feet) 200 Able to Maintain Weight Bearing Status Yes During Gait Assistive Devices Assistive Device Gait Belt Front Wheeled Walker Orthotic/Prosthetic Devices or Brace: No Gait Deviations General Gait Pattern Antalgic Decreased Stride Length Decreased Feet Clearance Factors Limiting Gait Function Factors Limiting Gait Function Decreased Activity Tolerance Decreased Strength Limited Range of Motion Pain Poor Balance Stair Climbing Assessment Evaluation Level of Assist On Stairs Contact Guard Assistance Devices Stair Climbing Assistive Devices Straight Cane Right Railing Technique/Endurance Stair Climbing Direction Ascend and Descend Stair Climbing Technique Step to Step Number of Steps Climbed 3 Stair Climbing Set # Repetitions (reps) 1 M5 PT-IP Objective Assessments Start: 03/15/19 17:03 Freq: NEEDED Status: Active Protocol: Document 03/15/19 16:15 AB (Rec: 03/15/19 17:16 AB [id number]) Orientation Orientation/Cognition Level of Alertness Alert Orientation Name Age Birthday Month Date Year Day of Week Place Situation Language Function Ability No Deficits Noted Safety Awareness Understands Safety Issues Memory Description No Deficits Noted Gross Range of Motion Lower Extremity ROM Impairments R knee flexion: ~ 70 deg Strength Lower Extremity Strength Assessment Bilaterally Impaired Hip 3+/5 Knee 4-/5 Coordination Assessment Gross Coordination Gross Coordination WNL Sensation Assessment Sensation Gross Sensation WNL Muscle Tone Muscle Tone WNL Yes M6 PT-IP Treatment Start: 03/15/19 17:03 Freq: NEEDED Status: Active Protocol: Document 03/17/19 11:00 GGD (Rec: 03/17/19 11:22 GGD [id number]) Physical Therapy Treatment Exercises Exercises Ankle Pumps Quad Sets Heel Slides Seated Knee Flexion/Extension M7 PT-IP Assessment and Plan Start: 03/15/19 17:03 Freq: NEEDED Status: Active Protocol: Document 03/17/19 11:00 GGD (Rec: 03/17/19 11:22 GGD [id number]) PT Summary Assessment and Plan Summary Assessment Summary PT able to progress gait distance. She needed heavy use of UE with stair mobility. She is safe for D/C home when medically stable. Frequency of Treatment Frequency Of Treatment Twice a Day Treatment Plan Physical Therapy Treatment Plan Bed Mobility Training Transfer Training Gait Training Therapeutic Exercise Balance Retraining Post Op Education Discharge Planning Hot or Cold Pack Neuromuscular Re-ed Coordination Retraining Manual Therapy Recommendations To Nursing Amount of Assist Needed 1 Person Assist Discharge Recommendations PT Discharge Recommendations Home with Assistance Outpatient PT
--- NOTE | 2019-03-17 11:10 | P.DS_ITS ---
History of Present Illness Date Patient Seen: 03/17/19 Time Patient Seen: 11:08 Chief complaint: Right TKA/[id number] Narrative: Hospital day 3, postop day 2 following right total knee arthroplasty. Patient developed postoperative bradycardia and hospitalist consulted. Her sotalol and verapamil were held. Her pulse rate gradually improved. She has worked with PT but needing further work today for stairs. Patient feels he is ready for discharge home today. She is scheduled to go to [facility] in [place]. She has been cleared by Dr. Diaz today for discharge. She has a [place] bath patient has prescriptions at home for oxycodone and Mobic. Discharge Providers Date of admission: 03/15/19 07:21 Discharge Date: 03/17/19 Primary care physician: Adeola Camacho PA-C Consults: 03/15/19 12:06 Consult to Discharge Planning Routine Comment: Consult to Physical Therapy Evaluate & Treat Comment: Physician Instructions: postop TKA protocol Consult to Respiratory Therapy Evaluate & Treat Comment: Physician Instructions: Evaluate and treat Discharge provider: Nabor Lopez PA-C Summary Discharge Diagnosis: 1. Status post right total knee arthroplasty. 2. Postoperative bradycardia Hospital Course: Patient brought to hospital on 03/15/2019 for above-noted surgery. She remained stable postoperatively orthopedic felder. She did develop postoperative bradycardia with pulse rates in the 30s and 40s. Consultation done with hospitalist and her sotalol and verapamil were held. Patient's whole pulse rate gradually improved off medication. She did progress with physical therapy. Her sotalol dose was decreased to 80 mg 1 b.i.d. by hospitalist. Patient ready for discharge home on postop day 2. Status at Discharge Cognitive/behavioral status at discharge: oriented Functional status at discharge: uses cane/walker Overall status at discharge: patient is progressing back to baseline Time Spent with Patient Less than 30 minutes Exam Vital Signs (past 8 hours): - 03/17/19 05:23 03/17/19 09:16 Temperature 97.7 F 99.1 F Pulse Rate 61 63 Respiratory Rate 16 15 Blood Pressure 118/65 127/65 Pulse Oximetry 98 99 Fraction of Inspired Oxygen 21 Oxygen Delivery Method Room Air Oxygen Flow Rate 0 Narrative Exam Narrative: Alert, oriented no acute distress resting in bed. Legs. David dressing to right knee is dry without drainage or inflammation. Vacuum intact. No calf pain or swelling. Pulses symmetrical. Objective Labs Result Diagrams: 03/16/19 05:08 03/15/19 18:53 Labs: Laboratory Results - last 24 hr 03/16/19 06:11 TSH 0.19 L Free T4 1.13 Discharge Plan Discharge Plan Patient Disposition: Home Discharge comment: Discharged home today after cleared by PT and hospitalist. Patient has this with path patient has prescriptions at home for oxycodone and Mobic. Her sotalol dose was changed to 80 mg b.i.d.. Patient will need follow- up appointments with her PCP and fence setter regarding her bradycardia. Discharge Med Rec/Prescriptions Prescriptions: New acetaminophen 325 mg Tablet 975 mg PO TID Qty: 30 RF: 0 aspirin 81 mg Tablet,Delayed Release (Dr/Ec) 81 mg PO BID Qty: 60 RF: 0 Continued levothyroxine 175 mcg tablet 175 mcg PO DAILY RF: 0 metformin 500 mg tablet extended release 24 hr 500 mg PO DAILY RF: 0 mupirocin 2 % ointment 1 applic topical PRN PRN (Reason: skin condition) RF: 0 oxycodone 5 mg tablet 5 - 10 mg PO Q3H PRN (Reason: post op pain) RF: 0 sodium fluoride-pot nitrate 1.1-5 % paste 1 applic dental BID RF: 0 multivitamin Tablet 1 tab PO DAILY RF: 0 acetaminophen [Tylenol Extra Strength] 500 mg Tablet 1,000 mg PO Q6H PRN (Reason: Pain) RF: 0 losartan 100 mg Tablet 100 mg PO DAILY RF: 0 iron 18 mg Tablet 18 mg PO DAILY RF: 0 meloxicam 15 mg Tablet 15 mg PO DAILY PRN (Reason: pain) RF: 0 aspirin 81 mg Tablet,Delayed Release (Dr/Ec) 81 mg PO DAILY RF: 0 Discontinued sotalol 160 mg Tablet 160 mg PO Q12H RF: 0 verapamil 240 mg Tablet Extended Release 240 mg PO Q12H RF: 0 Follow up/Referrals: Adeola Camacho PA-C [Primary Care Provider] - Provider Discharge Instructions Diet: Diet as Tolerated Activity: Ambulate as tolerated. Use walker as needed. Do range of motion of right knee as much as possible. Skin/Wound/Dressing Care Report to your healthcare provider any signs of infection, such as:: chills, fever, night sweats, increased pain, unusual drainage and unusual redness Dressing: Keep david dressing in place until postop visit. Visit Report/Discharge Packet Instructions: DI for Knee Replacement Discharge Data Primary Care Provider: Adeola Camacho Attending Provider: Don Walker Admit Date/Time: 03/15/19 07:21
[2019-03-17 12:02] VITALS: BP 104/56; PULSE 63; RESP 16; TEMP 37.3; O2SAT 97
--- NOTE | 2019-03-17 12:56 | CM.DPC ---
DCP: continued: Case discussed in Team Rounds. Dr. Diaz stated pt was medically clear for d/c. Ortho PA John stated that pt was fine for d/c if cleared today by PT and if she was able to void. Checked in now with pt and her . She has been up in the halls with PT and is cleared from their standpoint for the d/c to home setting. Pt confirms the pan was taken out but she has yet to void. A shower is planned with [employer] assist and KYLE Owen is following up re the voiding process. P: likely home today as per plan with spouse and OUTPT PT.
[2019-03-21 15:53] LABS: Magnesium, RBC 4.6 mg/dL (4.0-6.4)
== END 2019-03-17 14:20 | disposition home or self-care (01) | DRG 470 ==
PROVIDERS: Family Medicine; Internal Medicine; Admitting Provider Orthopaedic Surgery; PCP Physician Assistant Medical; Visit Provider Orthopaedic Surgery
PROC: 0SRC0JZ Replacement of Right Knee Joint with Synthetic Substitute, Open Approach (ICD-10-PCS; CPT 27447; principal; 2019-03-15 08:45)
DX: M17.11 Unilateral primary osteoarthritis, right knee (principal); I48.1 Persistent atrial fibrillation; Z68.41 Body mass index [BMI] 40.0-44.9, adult; R00.1 Bradycardia, unspecified; T44.7X5A Adverse effect of beta-adrenoreceptor antagonists, initial encounter; T46.1X5A Adverse effect of calcium-channel blockers, initial encounter; G47.33 Obstructive sleep apnea (adult) (pediatric); I10 Essential (primary) hypertension; E11.9 Type 2 diabetes mellitus without complications; F32.9 Major depressive disorder, single episode, unspecified; E66.01 Morbid (severe) obesity due to excess calories; J45.909 Unspecified asthma, uncomplicated; M21.061 Valgus deformity, not elsewhere classified, right knee; E03.9 Hypothyroidism, unspecified; Z79.84 Long term (current) use of oral hypoglycemic drugs
CPT/HCPCS: 36415; 73560; 80053; 82550; 82553; 82962; 83735; 84439; 84443; 84484; 85014; 85018; 85025; 93005; 94762; 97116; 97161; 97530; C1776; C9290; J0690; J2250; J2274; J2405; J2704; J8501